=== PATIENT | male | born 2000 | race Caucasian/White ===

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

== ENCOUNTER 2019-03-31 15:49 | Emergency (ER) | payer OTHER, MEDICAID, SELFPAY ==
[2019-03-31 15:54] VITALS: BP 121/74; PULSE 70; RESP 20; TEMP 36.8; O2SAT 97; BMI 29.5
--- NOTE | 2019-03-31 15:55 | ED.EXTPRO ---
HPI - Extremity Problem <Breonna Gandara PA-C - Last Filed: 03/31/19 20:00> General Chief complaint: Extremity Problem,Nontraumatic Stated complaint: pain right shoulder Time Seen by Provider: 03/31/19 15:54 Source: patient Mode of arrival: ambulatory Limitations: no limitations History of Present Illness HPI Narrative: This 19-year-old male complains of worsening chronic right shoulder pain. He states that he has had this for several months, he thinks due to awkward positioning in his office chair as the left arm rest is broken and there is a nail protruding, so he tends to sit with the right arm and shoulder flexed up. He states he did not have any fall or any specific injury, and usually pain would get better just with gentle rotation and stretching of the shoulder and changing position. Recently however, this has started to get worse with persistent ache, and the last couple of days he has had minimal relief with stretching or changing positions. He states that last night it was hard to sleep and get comfortable due to the pain and that is why he came in today. Pain tends to get worse with lifting heavy objects as well as positioning described above. He denies any radiation of the pain. He denies any chest pain. He denies any weakness or numbness in the arm. He has tried some aspirin with minimal improvement and Excedrin with no relief. He denies any specific up work related injury or trigger Related Data Previous Rx's Medication Instructions Recorded albuterol sulfate HFA 90 1 inh INHALATION Q4-6H PRN #18 gram 11/28/18 mcg/actuation aerosol inhaler fluoxetine 20 mg capsule 20 mg PO DAILY #7 cap 12/08/18 lamotrigine 100 mg tablet 100 mg PO BID #60 tab 02/07/19 bupropion HCl 75 mg tablet 75 mg PO BID #60 tab 03/12/19 cyclobenzaprine 10 mg PO Q8H #10 tab 03/31/19 lidocaine 2 patch TOP DAILY #30 each 03/31/19 meloxicam 15 mg PO DAILY #10 tab 03/31/19 Allergies Allergy/AdvReac Type Severity Reaction Status Date / Time No Known Drug Allergies Allergy Verified 02/26/19 08:57 Review of Systems <Breonna Gandara PA-C - Last Filed: 03/31/19 20:00> Review of Systems ROS Unobtainable: All systems reviewed & are unremarkable except as noted in HPI and below PFSH <Breonna Gandara PA-C - Last Filed: 03/31/19 20:00> Medical History ADHD (Acute) Depression (Acute) Surgical History No pertinent past surgical history (Acute) Social History Smoking Status: Current some day smoker substance use type: marijuana Social History Smoking Status: Current some day smoker substance use type: marijuana Exam <Breonna Gandara PA-C - Last Filed: 03/31/19 20:00> Narrative Exam Narrative: GENERAL APPEARANCE: Patient sitting comfortably, in no distress. PULMONARY: Lungs clear to auscultation bilaterally CV: Regular rhythm regular without murmur, normal S1 and S2, no S3 or S4 MUSCULOSKELETAL: No tenderness over the posterior or lateral shoulder. Minimal tenderness over the right acromioclavicular area. Full active and passive range of motion of the shoulder without tenderness. Negative impingement tests, able to maintain resisted abduction without tenderness. 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/5 bilaterally NEUROLOGIC: Sensation grossly intact throughout the upper extremities VASCULAR: Hands are warm and pink bilaterally Initial Vital Signs Initial Vital Signs: Vital Signs Temperature 98.2 F 03/31/19 15:54 Pulse Rate 70 03/31/19 15:54 Respiratory Rate 20 03/31/19 15:54 Blood Pressure 121/74 03/31/19 15:54 Pulse Oximetry 97 03/31/19 15:54 <Sana Ordonez DO - Last Filed: 04/03/19 09:06> Initial Vital Signs Initial Vital Signs: Vital Signs Temperature 98.2 F 03/31/19 15:54 Pulse Rate 70 03/31/19 15:54 Respiratory Rate 20 03/31/19 15:54 Blood Pressure 121/74 03/31/19 15:54 Pulse Oximetry 97 03/31/19 15:54 Course <Breonna Gandara PA-C - Last Filed: 03/31/19 20:00> Vital Signs - 8 hr 03/31/19 15:54 Temperature 98.2 F Pulse Rate 70 Respiratory Rate 20 Blood Pressure 121/74 Pulse Oximetry 97 <Sana Ordonez DO - Last Filed: 04/03/19 09:06> Vital Signs - 8 hr 03/31/19 15:54 Temperature 98.2 F Pulse Rate 70 Respiratory Rate 20 Blood Pressure 121/74 Pulse Oximetry 97 Discharge Plan Departure Patient Disposition: Home Clinical Impression: Strain of shoulder, right Qualifiers: Encounter type: initial encounter Qualified Code(s): S46.911A - Strain of unspecified muscle, fascia and tendon at shoulder and upper arm level, right arm, initial encounter Discharge Date/Time: 03/31/19 16:33 Interventions: ED Discharge Assessment Last Done: 03/31/19 16:33 Instructions: DI for Shoulder Sprain Activity Restrictions/Additional Instructions: I think you do have muscle and tendon chronic strain in your shoulder even though you did not have any specific injury. I agree with you that this is likely due to awkward positioning as well as lifting and repetitive motion. You can try ice and heat. I have also prescribed some pain patches for you to try as well as a once daily anti-inflammatory pain medicine and muscle relaxant. Please start the muscle relaxant at nighttime since you have had difficulty getting comfortable and sleeping due to your shoulder. Remember that this can make you sleepy and not to drive or work while taking it. Please follow-up with your PCP early next week to assess your progress and determine whether further treatment or referral, i.e. for physical therapy, may be helpful. Please avoid awkward positioning, repetitive motion and heavy lifting whether at home or work. I have sent your prescriptions to [facility]. Prescriptions: New cyclobenzaprine 10 mg tablet 10 mg PO Q8H Qty: 10 RF: 0 meloxicam 15 mg tablet 15 mg PO DAILY Qty: 10 RF: 0 lidocaine 5 % adhesive patch,medicated 2 patch TOP DAILY Qty: 30 RF: 0 No Action albuterol sulfate 90 mcg/actuation HFA aerosol inhaler 1 inh INHALATION Q4-6H PRN (Reason: shortness of breath) Qty: 18 RF: 0 lamotrigine 100 mg tablet 100 mg PO BID Qty: 60 RF: 1 bupropion HCl 75 mg tablet 75 mg PO BID Qty: 60 RF: 0 fluoxetine 20 mg capsule 20 mg PO DAILY Qty: 7 RF: 0 Referrals: Verena Keys DO [Primary Care Provider] - <Sana Ordonez DO - Last Filed: 04/03/19 09:06> Cosign ED Attending Lucretiaature Attestation: I was immediately available in the department for consultation. This documentation has been reviewed and I agree with assessment and plan. Supervised by Sana Ordonez DO
--- NOTE | 2019-03-31 16:03 | PC.NURSE ---
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 He states he feels the pain started from this.
== END 2019-03-31 16:33 | disposition home or self-care (01) ==
PROVIDERS: Emergency Provider Internal Medicine; Family Provider Family Medicine; PCP Family Medicine
DX: S46.911A Strain of unspecified muscle, fascia and tendon at shoulder and upper arm level, right arm, initial encounter (principal); X50.1XXA Overexertion from prolonged static or awkward postures, initial encounter
CPT/HCPCS: 99282; 99283

== ENCOUNTER 2021-04-17 15:00 | Outpatient (RCR) | payer OTHER, MEDICAID, SELFPAY ==
--- NOTE | 2020-11-10 16:36 | PT.OIE ---
Current Diagnoses Pain in right shoulder (11/10/20) Pain in right wrist (11/10/20) Pain in left wrist (11/10/20) Stiffness of unspecified wrist, not elsewhere classified (11/10/20) Past Medical History (Last Updated 09/23/20 @ 13:58 by Betsy Sosa PA-C) ADHD Depression Right wrist pain Past Surgical History (Last Reviewed 07/29/20 @ 14:04 by Belinda Diaz) No pertinent past surgical history Visit Care Team Role Provider Type Verena Keys DO Primary Care Provider Physician Specialty: Family Practice Address: [address] [place] [address], [address], [address] Email: [email or web address] Betsy Sosa PA-C Attending Provider [employer] Family Provider Referring Provider Specialty: Internal Medicine Address: [address] [place] [address], [facility], [place], [address] Email: [email or web address] Physical Therapy Initial Evaluation PT-OP-A Visit Information Start: 11/06/20 19:17 Freq: Status: Active Protocol: Document 11/10/20 08:22 LRN (Rec: 11/10/20 09:14 LRN [id number]) Out-Patient Physical Therapy Visit Information Visit Information Visit Type Initial Evaluation Visit Start Time 08:22 Visit Stop Time 09:14 Total Visit Minutes 52 Visit Number 1 Evaluation Information Evaluation Date 11/10/20 PT-OP-B Current Condition Start: 11/06/20 19:17 Freq: Status: Active Protocol: Document 11/10/20 08:22 LRN (Rec: 11/10/20 09:14 LRN [id number]) Current Condition History of Current Condition Onset Date 9 months ago. 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 Stopped using medications when he quit working at [employer]. Working [employer] 03/2018-present with return of symptoms 9 months ago, more severe in the past 3 months. Noticed most with online dalia. Having increased cramping and strain in the ulnar side of the L wrist. R hand stiffness with pain on closing hand. Was given 2 hand braces that decreased symptoms, but now having worsening of symptoms again. R hand strain is in anterior/volar wrist (volar> medial). R shoulder hurting due to dalia. He rests his forearm on the table that is high and he has to lift his arm to move his mouse. 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 R shoulder pain is constant. Pt is R handed. Planning on going back to school in January for digital animation. Pt noted popping his index fingers that is accompanied by pain rated 1/10 . Prior Treatments and Tests Given hand braces at walk-in- clinic. Treatment Goals Patient/Caregiver Goals Pt goal is get ex for R shoulder, and decrease wrist pain with discharge to [facility]. 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 Current Functional Impairments (Reported) Functional Limitations- ADL's Limited in dalia and typing. Functional Limitations- Work/School Works in the presence of pain. Functional Limitations- Recreation/ Limited in amount of dalia he Hobbies is able to do. Personal Factors Other Personal Factors That May Effect Moving out of house tomorrow. Therapy/Recovery Currently renting at home. 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 Hx of neck pain, head aches/ hearing problems, dizziness from anemia (transferring from crouch to standing), depression controlled by medication, borderline personality disorder on mood stabilizers. PT-OP-C Subjective Start: 11/06/20 19:17 Freq: Status: Active Protocol: Document 11/10/20 08:22 LRN (Rec: 11/10/20 09:14 LRN [id number]) Patient Questionnaires Quick Dash- Upper Extremity Quick Dash UE Score 13.63 Quick Dash UE Impairment 1 to 19% Impaired (Score 1-19) OP-PT Pain Assessment Pain Assessment Grid Paper Pain Assessment Grid Completed Yes Location R shoulder Pain Location Details R upper shoulder Intensity 5 Scale Used Numeric (0 - 10) Description Aching Frequency Constant Pain Aggravating Factors Activity R wrist anterior/medial Pain Location Details R wrist on anterior and medial side. Intensity 4 Scale Used Numeric (0 - 10) Description Tightness Frequency Intermittent Pain Duration With use of hand Pain Aggravating Factors Activity Other Pain Aggravating Factors When trying to close th hand Other Pain Alleviating Factors Hand brace while at work. L wrist Pain Location Details L ulnar side of wrist Intensity 4 Scale Used Numeric (0 - 10) Description Cramping,Tightness Frequency Intermittent Pain Aggravating Factors Position Other Pain Aggravating Factors Bending wrist PT-OP-H Neuro Start: 11/06/20 19:17 Freq: Status: Active Protocol: Document 11/10/20 08:22 LRN (Rec: 11/10/20 09:14 LRN [id number]) Sensation Evaluation Gross Sensation Gross Sensation WNL PT-OP-J Posture/Palpation/Skin Start: 11/06/20 19:17 Freq: Status: Active Protocol: Document 11/10/20 08:22 LRN (Rec: 11/10/20 09:14 LRN [id number]) Posture Evaluation Position Sitting Head/C-Spine Posture Rotated Right Shoulder Posture (L) Forward,(R) Forward,(L) Elevated Standing Head/C-Spine Posture Side Bent Right T-Spine Posture Flattened L-Spine Posture Neutral Palpation Assessment Location R shoulder Palpation Location Supraspinatus Palpation Findings Tenderness Palpation Details Not tender at attachment sites . R wrist Palpation Location Radial side of wrist Palpation Findings Tenderness Palpation Details Tender at AB Pollicus Longus and Extensor Pollicus Brevis tendon. L wrist Palpation Location Radial side of wrist Palpation Findings Tenderness Palpation Details Tender at AB Pollicus Longus and Extensor Pollicus Brevis tendon. PT-OP-K Range of Motion Start: 11/06/20 19:17 Freq: Status: Active Protocol: Document 11/10/20 08:22 LRN (Rec: 11/10/20 09:14 LRN [id number]) Wrist Goniometric Range of Motion Wrist Right Wrist ROM WFL No Flexion Active (degrees) 60 Extension Active (degrees) 50 Ulnar Deviation Active (degrees) 30 Radial Deviation Active (degrees) 20 Left Wrist ROM WFL No Flexion Active (degrees) 70 Extension Active (degrees) 70 Ulnar Deviation Active (degrees) 32 Radial Deviation Active (degrees) 34 ROM Limitations Wrist Limitations of Range of Motion Pain Comments L wrist UD caused discomfort in radial side. PT-OP-L Special Tests Start: 11/06/20 19:17 Freq: Status: Active Protocol: Document 11/10/20 08:22 LRN (Rec: 11/10/20 09:14 LRN [id number]) Special Tests Wrist/Hand Special Tests Jo's Test Results + left PT-OP-M Strength Start: 11/06/20 19:17 Freq: Status: Active Protocol: Document 11/10/20 08:22 LRN (Rec: 11/10/20 09:14 LRN [id number]) Wrist Strength Wrist Manual Muscle Testing Right Comments Generally 5/5 with pain on testing UD, pain is radial side. Left Comments Generally 5/5 with pain on testing Ext (pain at wrist), Flex (pain at thumb ext tendon (one more lateral), RD pain is radial side, UD pain is radial side. Finger/Thumb Strength Finger Manual Muscle Testing Left Thumb Adduction 4+ Good+ Abduction (fingers T1) 4+ Good+ Comments Pain in medial thumb ext tendon. All else 5/5 no significant. PT-OP-Q Treatments Start: 11/06/20 19:17 Freq: Status: Active Protocol: Document 11/10/20 08:22 LRN (Rec: 11/10/20 09:14 LRN [id number]) Self-Care/Home Management Treatment Education Patient Education Pain Management,Posture Other Education Discussed results of evaluation, goals, and plan of care, pt agreeable. Discussed and educated pt in use of ice at home for pain management. Discussed and educated pt in proper posturing with emphasis on head/neck shoulder positioning. Recommended pt continue wearing wrist splints as he has been to help relieve pain. PT-OP-T Assessment and Plan Start: 11/06/20 19:17 Freq: Status: Active Protocol: Document 11/10/20 08:22 LRN (Rec: 11/10/20 09:14 LRN [id number]) Physical Therapy Assessment Rehab Potential Rehabilitation Potential Fair Evaluation Complexity Number of Personal Factors/Comorbidities 3 or More Number of Body Systems Impaired 4 or More Clinical Presentation at Evaluation Evolving Impairments Impairments Activity Tolerance,Pain,ROM, Soft Tissue Mobility Goals Four Impairment R shoulder pain Short Term Goal (STG) Pt will be educated in a self care HEP of shoulder exercises to manage his pain. STG Duration 12/12/20 Custodial Goal (LTG) Decrease R shoulder pain to intermittent in nature and pain no greater than 2/10. LTG Duration 01/09/21 Three Impairment L radial sided wrist pain Short Term Goal (STG) Pt will be educated in proper wrist care to minimize pain and improve pain free mobility . STG Duration 11/28/20 Dining Car Hop Goal (LTG) Decrease R wrist pain to 0/10 with intermittent flare ups with prolonged use. LTG Duration 01/09/21 Two Impairment R wrist pain with use (pain rated 4/10). Short Term Goal (STG) Pt will be educated in a self care wrist flexibility HEP. STG Duration 12/05/20 Dining Car Hop Goal (LTG) Decrease R wrist pain to 0/10 with intermittent flare ups with prolonged use. LTG Duration 01/09/21 One Impairment Lacks self care HEP Custodial Goal (LTG) Pt will be independent with a self care exercise program of wrist, thumb/finger stretches. LTG Duration 01/09/21 Assessment Summary Assessment Pt is a 20 yo male who presents with a +DeQuervain's syndrome of the L wrist and beginning symptoms on the R wrist. He also demonstrates soft tissue dysfunction of the R shoulder and postural changes most noticeable when at rest; therefore he may have a cervical component for his R sided pain (shoulder/wrist) that will be assessed for at his next visit. 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 The pt reportedly spends quite a bit of time playing online games and using his computer for writing (typing), requiring prolonged use of his thumbs/wrist/hand, hindering his progress, but the pt is very receptive to modifying his activities for his rehabilitation. Physical Therapy Plan Frequency and Duration Frequency of Treatment 1x/Week Plan of Care Start Date 11/10/20 Plan of Care End Date 01/09/21 Therapeutic Interventions Therapeutic Interventions Home Exercise Program,Joint Mobilizations,Manual Therapy, Patient/Caregiver Education, Self-Care/Home Management,Soft Tissue Mobilization,Taping, Therapeutic Exercises Modalities Cold Pack/Ice Massage,Hot Packs,Iontophoresis,Ultrasound Other Therapeutic Interventions Iontophoresis with 3mg/mL Dexamethasone with sodium phosphate. Next Visit Focus/Plan Next Note Type Treatment Note Next Visit Plan Assess for cervical involvement of R shoulder/ wrist pain; Start pt on HEP: R wrist stretches and neck stretches if appropriate. Iontophoresis of L thumb Abductors and start HEP: of gentle L wrist/thumb stretches . Educate & Issue home program for modality use for pain management (ice/contrast baths). Discuss reduction of pt use of computer to wrist thumb/wrist. Discuss ergonomics of positioning to use his computer. Educate pt in self STM of thumb AB's and wrist muscles involved with tightness. Possible use of K- tape
--- NOTE | 2020-11-10 16:36 | PT.OPPOC ---
Physical, Occupational & Speech Therapy At [facility] Current Diagnoses Pain in right shoulder (11/10/20) Pain in right wrist (11/10/20) Pain in left wrist (11/10/20) Stiffness of unspecified wrist, not elsewhere classified (11/10/20) Visit Care Team Role Provider Type Verena Keys DO Primary Care Provider Physician Specialty: Family Practice Address: [address] [place] [address], [address], [place], [address] Email: [email or web address] Betsy Sosa PA-C Attending Provider [employer] Family Provider Referring Provider Specialty: Internal Medicine Address: [address] [place] [address], [address], [place], [address] Email: [email or web address] Plan Of Care PT-OP-T Assessment and Plan Start: 11/06/20 19:17 Freq: Status: Active Protocol: Document 11/10/20 08:22 LRN (Rec: 11/10/20 09:14 LRN [id number]) Physical Therapy Assessment Rehab Potential Rehabilitation Potential Fair Evaluation Complexity Number of Personal Factors/Comorbidities 3 or More Number of Body Systems Impaired 4 or More Clinical Presentation at Evaluation Evolving Impairments Impairments Activity Tolerance,Pain,ROM, Soft Tissue Mobility Goals Four Impairment R shoulder pain Short Term Goal (STG) Pt will be educated in a self care HEP of shoulder exercises to manage his pain. STG Duration 12/12/20 Die Out Worker Goal (LTG) Decrease R shoulder pain to intermittent in nature and pain no greater than 2/10. LTG Duration 01/09/21 Three Impairment L radial sided wrist pain Short Term Goal (STG) Pt will be educated in proper wrist care to minimize pain and improve pain free mobility . STG Duration 11/28/20 Mcc Goal (LTG) Decrease R wrist pain to 0/10 with intermittent flare ups with prolonged use. LTG Duration 01/09/21 Two Impairment R wrist pain with use (pain rated 4/10). Short Term Goal (STG) Pt will be educated in a self care wrist flexibility HEP. STG Duration 12/05/20 Die Out Worker Goal (LTG) Decrease R wrist pain to 0/10 with intermittent flare ups with prolonged use. LTG Duration 01/09/21 One Impairment Lacks self care HEP Mcc Goal (LTG) Pt will be independent with a self care exercise program of wrist, thumb/finger stretches. LTG Duration 01/09/21 Assessment Summary Assessment Pt is a 20 yo male who presents with a +DeQuervain's syndrome of the L wrist and beginning symptoms on the R wrist. He also demonstrates soft tissue dysfunction of the R shoulder and postural changes most noticeable when at rest; therefore he may have a cervical component for his R sided pain (shoulder/wrist) that will be assessed for at his next visit. 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 The pt reportedly spends quite a bit of time playing online games and using his computer for writing (typing), requiring prolonged use of his thumbs/wrist/hand, hindering his progress, but the pt is very receptive to modifying his activities for his rehabilitation. Physical Therapy Plan Frequency and Duration Frequency of Treatment 1x/Week Plan of Care Start Date 11/10/20 Plan of Care End Date 01/09/21 Therapeutic Interventions Therapeutic Interventions Home Exercise Program,Joint Mobilizations,Manual Therapy, Patient/Caregiver Education, Self-Care/Home Management,Soft Tissue Mobilization,Taping, Therapeutic Exercises Modalities Cold Pack/Ice Massage,Hot Packs,Iontophoresis,Ultrasound Other Therapeutic Interventions Iontophoresis with 3mg/mL Dexamethasone with sodium phosphate. Next Visit Focus/Plan Next Note Type Treatment Note Next Visit Plan Assess for cervical involvement of R shoulder/ wrist pain; Start pt on HEP: R wrist stretches and neck stretches if appropriate. Iontophoresis of L thumb Abductors and start HEP: of gentle L wrist/thumb stretches . Educate & Issue home program for modality use for pain management (ice/contrast baths). Discuss reduction of pt use of computer to wrist thumb/wrist. Discuss ergonomics of positioning to use his computer. Educate pt in self STM of thumb AB's and wrist muscles involved with tightness. Possible use of K- tape Plan of Care Dates Plan of Care Start Date 11/10/20 Plan of Care End Date 01/09/21 Electronically Signed by: Jacqueline Gonzalez, PT 11/11/20 0655 Please Sign and Return: I have reviewed this Plan of Care and certify that the skilled therapy services above are required to meet the patient?s needs. Physician Signature Date Printed Name and Credentials Clinical Instructor Signature Printed Name and Credentials
--- NOTE | 2020-11-20 12:33 | PT.OTN ---
Current Diagnoses Pain in right shoulder (11/20/20) Pain in right wrist (11/20/20) Pain in left wrist (11/20/20) Stiffness of unspecified wrist, not elsewhere classified (11/20/20) Physical Therapy Treatment Note PT-OP-A Visit Information Start: 11/06/20 19:17 Freq: Status: Active Protocol: Document 11/20/20 11:21 LRN (Rec: 11/20/20 12:32 LRN [id number]) Out-Patient Physical Therapy Visit Information Visit Information Visit Type Treatment Note Visit Start Time 11: Visit Stop Time 12:12 Total Visit Minutes 51 Visit Number 2 Evaluation Information Evaluation Date 11/10/20 PT-OP-B Current Condition Start: 11/06/20 19:17 Freq: Status: Active Protocol: Document 11/10/20 08:22 LRN (Rec: 11/10/20 09:14 LRN [id number]) Current Condition History of Current Condition Onset Date 9 months ago. 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 Stopped using medications when he quit working at [employer]. Working [employer] 03/2018-present with return of symptoms 9 months ago, more severe in the past 3 months. Noticed most with online dalia. Having increased cramping and strain in the ulnar side of the L wrist. R hand stiffness with pain on closing hand. Was given 2 hand braces that decreased symptoms, but now having worsening of symptoms again. R hand strain is in anterior/volar wrist (volar> medial). R shoulder hurting due to dalia. He rests his forearm on the table that is high and he has to lift his arm to move his mouse. 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 R shoulder pain is constant. Pt is R handed. Planning on going back to school in January for digital animation. Pt noted popping his index fingers that is accompanied by pain rated 1/10 . Prior Treatments and Tests Given hand braces at walk-in- clinic. Treatment Goals Patient/Caregiver Goals Pt goal is get ex for R shoulder, and decrease wrist pain with discharge to [facility]. 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 Current Functional Impairments (Reported) Functional Limitations- ADL's Limited in dalia and typing. Functional Limitations- Work/School Works in the presence of pain. Functional Limitations- Recreation/ Limited in amount of dalia he Hobbies is able to do. Personal Factors Other Personal Factors That May Effect Moving out of house tomorrow. Therapy/Recovery Currently renting at home. 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 Hx of neck pain, head aches/ hearing problems, dizziness from anemia (transferring from crouch to standing), depression controlled by medication, borderline personality disorder on mood stabilizers. PT-OP-C Subjective Start: 11/06/20 19:17 Freq: Status: Active Protocol: Document 11/20/20 11:21 LRN (Rec: 11/20/20 12:32 LRN [id number]) OP-PT Subjective Patient Comments Patient Comments Started Adderal and didn't sleep; therefore is slow. Wearing wrist brace and hasn't been working at [employer] but has worked some at [employer] using more the L hand to spray (can't wear braces at work). Pain only with stress. R wrist is consistently more than R. Repositioned mouse and keyboard and hoping to get some relief of R shoulder pain with adjustment. Has been biking without using hands mostly. PT-OP-H Neuro Start: 11/06/20 19:17 Freq: Status: Active Protocol: Document 11/10/20 08:22 LRN (Rec: 11/10/20 09:14 LRN [id number]) Sensation Evaluation Gross Sensation Gross Sensation WNL PT-OP-J Posture/Palpation/Skin Start: 11/06/20 19:17 Freq: Status: Active Protocol: Document 11/10/20 08:22 LRN (Rec: 11/10/20 09:14 LRN [id number]) Posture Evaluation Position Sitting Head/C-Spine Posture Rotated Right Shoulder Posture (L) Forward,(R) Forward,(L) Elevated Standing Head/C-Spine Posture Side Bent Right T-Spine Posture Flattened L-Spine Posture Neutral Palpation Assessment Location R shoulder Palpation Location Supraspinatus Palpation Findings Tenderness Palpation Details Not tender at attachment sites . R wrist Palpation Location Radial side of wrist Palpation Findings Tenderness Palpation Details Tender at AB Pollicus Longus and Extensor Pollicus Brevis tendon. L wrist Palpation Location Radial side of wrist Palpation Findings Tenderness Palpation Details Tender at AB Pollicus Longus and Extensor Pollicus Brevis tendon. PT-OP-K Range of Motion Start: 11/06/20 19:17 Freq: Status: Active Protocol: Document 11/10/20 08:22 LRN (Rec: 11/10/20 09:14 LRN [id number]) Wrist Goniometric Range of Motion Wrist Right Wrist ROM WFL No Flexion Active (degrees) 60 Extension Active (degrees) 50 Ulnar Deviation Active (degrees) 30 Radial Deviation Active (degrees) 20 Left Wrist ROM WFL No Flexion Active (degrees) 70 Extension Active (degrees) 70 Ulnar Deviation Active (degrees) 32 Radial Deviation Active (degrees) 34 ROM Limitations Wrist Limitations of Range of Motion Pain Comments L wrist UD caused discomfort in radial side. PT-OP-L Special Tests Start: 11/06/20 19:17 Freq: Status: Active Protocol: Document 11/10/20 08:22 LRN (Rec: 11/10/20 09:14 LRN [id number]) Special Tests Wrist/Hand Special Tests Jo's Test Results + left PT-OP-M Strength Start: 11/06/20 19:17 Freq: Status: Active Protocol: Document 11/10/20 08:22 LRN (Rec: 11/10/20 09:14 LRN [id number]) Wrist Strength Wrist Manual Muscle Testing Right Comments Generally 5/5 with pain on testing UD, pain is radial side. Left Comments Generally 5/5 with pain on testing Ext (pain at wrist), Flex (pain at thumb ext tendon (one more lateral), RD pain is radial side, UD pain is radial side. Finger/Thumb Strength Finger Manual Muscle Testing Left Thumb Adduction 4+ Good+ Abduction (fingers T1) 4+ Good+ Comments Pain in medial thumb ext tendon. All else 5/5 no significant. PT-OP-Q Treatments Start: 11/06/20 19:17 Freq: Status: Active Protocol: Document 11/20/20 11:21 LRN (Rec: 11/20/20 12:32 LRN [id number]) Therapeutic Exercises Sitting Exercises Thumb AB stretch Sitting Exercise Name Jo test position Side bilateral Reps/Minutes 7' Comments Exercise done in supine & sitting. Extra time time to determine max rosa Wrist flexors stretch Sitting Exercise Name Wrist flexors stretch Side bilateral Reps/Minutes Hold x 10 secs, 5' Comments Extra time to determinine max tolerance position for stretch Manual Therapy Treatment Soft Tissue Mobilization R UT Body Location R UT Mobilization Type Strumming,Sustained Pressure Intensity/Depth Moderate Body Position Supine Manual Traction Cervical Details Manual C tx with belt Body Position Supine Reps/Duration 5' Comments No change with R shoulder pain in R UT with traction Self-Care/Home Management Treatment Education Patient Education Home Exercise Program,Posture Other Education Educated and discussed posture of pt in sitting at computer , handout issued and reviewed . Pt did not have questions regarding sitting position, but briefly discussed his chair and locking positions. Activities Self-Care/Home Management Activities Issued & reviewed HEP: * Stretch to radial side of wrist (Finelstein position), * Stretch to wrist flexors. PT-OP-R Modalities Start: 11/06/20 19:17 Freq: Status: Active Protocol: Document 11/20/20 11:21 LRN (Rec: 11/20/20 12:32 LRN [id number]) Ultrasound Therapy Treatment R UT Treatment Duration (minutes) 8 Patient Position Supine Coupling Medium Ultrasound Gel Applicator Size (cm2) 10 Mode Setting Continuous Duty Cycle 100% Intensity Setting (w/cm2) 1.5 PT-OP-T Assessment and Plan Start: 11/06/20 19:17 Freq: Status: Active Protocol: Document 11/20/20 11:21 LRN (Rec: 11/20/20 12:32 LRN [id number]) Physical Therapy Assessment Goals Four Impairment R shoulder pain Short Term Goal (STG) Pt will be educated in a self care HEP of shoulder exercises to manage his pain. STG Duration 12/12/20 Underwriting Director Goal (LTG) Decrease R shoulder pain to intermittent in nature and pain no greater than 2/10. LTG Duration 01/09/21 Three Impairment L radial sided wrist pain Short Term Goal (STG) Pt will be educated in proper wrist care to minimize pain and improve pain free mobility . STG Duration 11/28/20 [facility] Goal (LTG) Decrease R wrist pain to 0/10 with intermittent flare ups with prolonged use. LTG Duration 01/09/21 Two Impairment R wrist pain with use (pain rated 4/10). Short Term Goal (STG) Pt will be educated in a self care wrist flexibility HEP. STG Duration 12/05/20 Underwriting Director Goal (LTG) Decrease R wrist pain to 0/10 with intermittent flare ups with prolonged use. LTG Duration 01/09/21 One Impairment Lacks self care HEP Underwriting Director Goal (LTG) Pt will be independent with a self care exercise program of wrist, thumb/finger stretches. HEP TO DATE: *Stretch to radial side of wrist ( Finelstein position), *Stretch to wrist flexors. LTG Duration 01/09/21 (11/20/20: Progressing) Assessment Summary Assessment Pt had no change in R shoulder pain with manual cervical tx; therefore probably not neuro related. Pt not having wrist pain to start, primary complaint was R UT pain. Pt appeared to have a good understanding of HEP with handouts. Pt Alderil medication may make his recall of ex's difficult; therefore will need to review next visit . Pt actively bicycling for transportation may hinder his rehab progress. Physical Therapy Plan Frequency and Duration Frequency of Treatment 1x/Week Plan of Care Start Date 11/10/20 Plan of Care End Date 01/09/21 Next Visit Focus/Plan Next Note Type Treatment Note Next Visit Plan Assess response to ergonomic changes of desk at home. Review issued HEP. Start pt on HEP: R wrist stretches and add R UT stretch. Try Iontophoresis of L thumb Abductors and progress HEP: of gentle L wrist/thumb stretches. Educate & Issue home program for modality use for pain management (ice/ contrast baths). Discuss reduction of pt use of computer to wrist thumb/wrist. Educate pt in self STM of thumb AB's and wrist muscles involved with tightness. Possible use of K-tape
--- NOTE | 2020-11-27 11:42 | PT-OP ANOTE ---
Per phone conversation, pt informed of DNS, but pt reported he has appt scheduled for tomorrow. Pt scheduled tomorrow at 9a opening.
--- NOTE | 2020-11-28 16:53 | PT.OTN ---
Current Diagnoses Pain in right shoulder (11/28/20) Pain in right wrist (11/28/20) Pain in left wrist (11/28/20) Stiffness of unspecified wrist, not elsewhere classified (11/28/20) Physical Therapy Treatment Note PT-OP-A Visit Information Start: 11/06/20 19:17 Freq: Status: Active Protocol: Document 11/28/20 09:03 LRN (Rec: 11/28/20 09:57 LRN [id number]) Out-Patient Physical Therapy Visit Information Visit Information Visit Type Treatment Note Visit Start Time 09:03 Visit Stop Time 09:53 Total Visit Minutes 50 Visit Number 3 Evaluation Information Evaluation Date 11/10/20 PT-OP-B Current Condition Start: 11/06/20 19:17 Freq: Status: Active Protocol: Document 11/10/20 08:22 LRN (Rec: 11/10/20 09:14 LRN [id number]) Current Condition History of Current Condition Onset Date 9 months ago. 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 Stopped using medications when he quit working at [employer]. Working [employer] 03/2018-present with return of symptoms 9 months ago, more severe in the past 3 months. Noticed most with online dalia. Having increased cramping and strain in the ulnar side of the L wrist. R hand stiffness with pain on closing hand. Was given 2 hand braces that decreased symptoms, but now having worsening of symptoms again. R hand strain is in anterior/volar wrist (volar> medial). R shoulder hurting due to dalia. He rests his forearm on the table that is high and he has to lift his arm to move his mouse. 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 R shoulder pain is constant. Pt is R handed. Planning on going back to school in January for digital animation. Pt noted popping his index fingers that is accompanied by pain rated 1/10 . Prior Treatments and Tests Given hand braces at walk-in- clinic. Treatment Goals Patient/Caregiver Goals Pt goal is get ex for R shoulder, and decrease wrist pain with discharge to [facility]. 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 Current Functional Impairments (Reported) Functional Limitations- ADL's Limited in dalia and typing. Functional Limitations- Work/School Works in the presence of pain. Functional Limitations- Recreation/ Limited in amount of dalia he Hobbies is able to do. Personal Factors Other Personal Factors That May Effect Moving out of house tomorrow. Therapy/Recovery Currently renting at home. 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 Hx of neck pain, head aches/ hearing problems, dizziness from anemia (transferring from crouch to standing), depression controlled by medication, borderline personality disorder on mood stabilizers. PT-OP-C Subjective Start: 11/06/20 19:17 Freq: Status: Active Protocol: Document 11/28/20 09:03 LRN (Rec: 11/28/20 09:57 LRN [id number]) OP-PT Subjective Patient Comments Patient Comments R shoulder wasn't bad at work yesterday and at night. Change of job has helped not doing [employer] heavy lifting stuff. [employer] work is not bothering shoulder, but wrist isn't too bad due to wearing brace with saran wrap. Writing at home, he tried to adjust his angles at the computer at home. Lying on back for 5-10' helps decrease neck/R shoulder pain. States he did not get enough sleep so he is seeing shadow people. OP-PT Pain Assessment Location R shoulder Pain Location Details R upper shoulder Intensity 5 Scale Used Numeric (0 - 10) Description Aching Frequency Intermittent Pain Aggravating Factors Activity R wrist anterior/medial Pain Location Details R wrist on anterior and medial side. Intensity 4 Scale Used Numeric (0 - 10) Description Tightness Frequency Intermittent Pain Duration With use of hand Pain Aggravating Factors Activity Other Pain Aggravating Factors When trying to close the hand Other Pain Alleviating Factors Hand brace while at work. Comments Pain Comments No pain in R shoulder and wrist. PT-OP-H Neuro Start: 11/06/20 19:17 Freq: Status: Active Protocol: Document 11/10/20 08:22 LRN (Rec: 11/10/20 09:14 LRN [id number]) Sensation Evaluation Gross Sensation Gross Sensation WNL PT-OP-J Posture/Palpation/Skin Start: 11/06/20 19:17 Freq: Status: Active Protocol: Document 11/10/20 08:22 LRN (Rec: 11/10/20 09:14 LRN [id number]) Posture Evaluation Position Sitting Head/C-Spine Posture Rotated Right Shoulder Posture (L) Forward,(R) Forward,(L) Elevated Standing Head/C-Spine Posture Side Bent Right T-Spine Posture Flattened L-Spine Posture Neutral Palpation Assessment Location R shoulder Palpation Location Supraspinatus Palpation Findings Tenderness Palpation Details Not tender at attachment sites . R wrist Palpation Location Radial side of wrist Palpation Findings Tenderness Palpation Details Tender at AB Pollicus Longus and Extensor Pollicus Brevis tendon. L wrist Palpation Location Radial side of wrist Palpation Findings Tenderness Palpation Details Tender at AB Pollicus Longus and Extensor Pollicus Brevis tendon. PT-OP-K Range of Motion Start: 11/06/20 19:17 Freq: Status: Active Protocol: Document 11/10/20 08:22 LRN (Rec: 11/10/20 09:14 LRN [id number]) Wrist Goniometric Range of Motion Wrist Right Wrist ROM WFL No Flexion Active (degrees) 60 Extension Active (degrees) 50 Ulnar Deviation Active (degrees) 30 Radial Deviation Active (degrees) 20 Left Wrist ROM WFL No Flexion Active (degrees) 70 Extension Active (degrees) 70 Ulnar Deviation Active (degrees) 32 Radial Deviation Active (degrees) 34 ROM Limitations Wrist Limitations of Range of Motion Pain Comments L wrist UD caused discomfort in radial side. PT-OP-L Special Tests Start: 11/06/20 19:17 Freq: Status: Active Protocol: Document 11/10/20 08:22 LRN (Rec: 11/10/20 09:14 LRN [id number]) Special Tests Wrist/Hand Special Tests Jo's Test Results + left PT-OP-M Strength Start: 11/06/20 19:17 Freq: Status: Active Protocol: Document 11/10/20 08:22 LRN (Rec: 11/10/20 09:14 LRN [id number]) Wrist Strength Wrist Manual Muscle Testing Right Comments Generally 5/5 with pain on testing UD, pain is radial side. Left Comments Generally 5/5 with pain on testing Ext (pain at wrist), Flex (pain at thumb ext tendon (one more lateral), RD pain is radial side, UD pain is radial side. Finger/Thumb Strength Finger Manual Muscle Testing Left Thumb Adduction 4+ Good+ Abduction (fingers T1) 4+ Good+ Comments Pain in medial thumb ext tendon. All else 5/5 no significant. PT-OP-Q Treatments Start: 11/06/20 19:17 Freq: Status: Active Protocol: Document 11/28/20 09:03 LRN (Rec: 11/28/20 09:57 LRN [id number]) Therapeutic Exercises Sitting Exercises R UT Stretch Sitting Exercise Name R UT stretch Side bilateral Reps/Minutes 10 x 6 Shoulder rolls Sitting Exercise Name Forward/Backward Side bilateral Reps/Minutes 15x each Scapular pinches Sitting Exercise Name Scapular pinches Side bilateral Reps/Minutes 10x 2 Thumb AB stretch Sitting Exercise Name Jo test position, R>L Side bilateral Reps/Minutes 7' Comments Exercise done in supine & sitting. Extra time time to determine max rosa Wrist flexors stretch Sitting Exercise Name Wrist flexors stretch, R>L Side bilateral Reps/Minutes Hold x 10 secs, 5' Comments Extra time to determinine max tolerance position for stretch Self-Care/Home Management Treatment Education Patient Education Home Exercise Program Other Education Reviewed Previous HEP of wrist stretches with 2nd set issued : wrist stretches. Activities Self-Care/Home Management Activities Developed list of HEP ex's for pt to track completion of exercises. Issued & reviewed HEP: STRETCHES: *Sidebend (UT), * Rot. STRENGTHENING: * Scapular pinches, *Shoulder rolls. POSTURE: *Postural repositioning against wall. PT-OP-R Modalities Start: 11/06/20 19:17 Freq: Status: Active Protocol: Document 11/28/20 09:03 LRN (Rec: 11/28/20 09:57 LRN [id number]) Ultrasound Therapy Treatment R thumb AB Treatment Duration (minutes) 8 Patient Position Sitting Applicator Size (cm2) 2 Mode Setting Pulsed Duty Cycle 50% Intensity Setting (w/cm2) 1.0 PT-OP-T Assessment and Plan Start: 11/06/20 19:17 Freq: Status: Active Protocol: Document 11/28/20 09:03 LRN (Rec: 11/28/20 09:57 LRN [id number]) Physical Therapy Assessment Goals Four Impairment R shoulder pain Short Term Goal (STG) Pt will be educated in a self care HEP of shoulder exercises to manage his pain. STG Duration 12/12/20 Account Contact Associate Goal (LTG) Decrease R shoulder pain to intermittent in nature and pain no greater than 2/10. LTG Duration 01/09/21 Three Impairment L radial sided wrist pain Short Term Goal (STG) Pt will be educated in proper wrist care to minimize pain and improve pain free mobility . STG Duration 11/28/20 Account Contact Associate Goal (LTG) Decrease R wrist pain to 0/10 with intermittent flare ups with prolonged use. LTG Duration 01/09/21 Two Impairment R wrist pain with use (pain rated 4/10). Short Term Goal (STG) Pt will be educated in a self care wrist flexibility HEP. STG Duration 12/05/20 Shelter Goal (LTG) Decrease R wrist pain to 0/10 with intermittent flare ups with prolonged use. LTG Duration 01/09/21 One Impairment Lacks self care HEP Shelter Goal (LTG) Pt will be independent with a self care exercise program of wrist, thumb/finger stretches. HEP TO DATE: STRETCHES: * Sidebend (UT), *Rot, *Stretch to radial side of wrist ( Finelstein position), *Stretch to wrist flexors. STRENGTHENING: *Scapular pinches, *Shoulder rolls. POSTURE: *Postural repositioning against wall. LTG Duration 01/09/21 (: Progressing) Assessment Summary Assessment Assess response to US. Pt still working on adjusting his computer station due to recent move, but appears to have a good understanding of what he can do to improve his posture. Pt able to follow directions, but needs handouts due to questionable recall. Pt was issued 2nd set of his HEP with list of ex's for him to track progress. Physical Therapy Plan Frequency and Duration Frequency of Treatment 1x/Week Plan of Care Start Date 11/10/20 Plan of Care End Date 01/09/21 Next Visit Focus/Plan Next Note Type Treatment Note Next Visit Plan 5 more visits approved, discuss POC. Assess response to ergonomic changes of desk at home if pt able to complete set up. Review issued HEP ( shoulder rolls, neck stretch). Progress R shoulder/neck stabilization. Try Iontophoresis of L thumb Abductors if needed for pain management. Progress HEP as appropriate. Educate & Issue home program for modality use for pain management (ice/ contrast baths). Educate pt in self STM of thumb AB's and wrist muscles involved with tightness. Possible use of K- tape. Start strengthening of opposition/pinching/intrinsic strengthening.
--- NOTE | 2020-12-02 16:38 | PT.OTN ---
Current Diagnoses Pain in right shoulder (12/02/20) Pain in right wrist (12/02/20) Pain in left wrist (12/02/20) Stiffness of unspecified wrist, not elsewhere classified (12/02/20) Physical Therapy Treatment Note PT-OP-A Visit Information Start: 11/06/20 19:17 Freq: Status: Active Protocol: Document 12/02/20 09:48 LRN (Rec: 12/02/20 10:35 LRN [id number]) Out-Patient Physical Therapy Visit Information Visit Information Visit Type Treatment Note Visit Start Time 09:48 Visit Stop Time 10:33 Total Visit Minutes 45 Visit Number 4 Evaluation Information Evaluation Date 11/10/20 PT-OP-B Current Condition Start: 11/06/20 19:17 Freq: Status: Active Protocol: Document 11/10/20 08:22 LRN (Rec: 11/10/20 09:14 LRN [id number]) Current Condition History of Current Condition Onset Date 9 months ago. 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 Stopped using medications when he quit working at [employer]. Working [employer] 03/2018-present with return of symptoms 9 months ago, more severe in the past 3 months. Noticed most with online dalia. Having increased cramping and strain in the ulnar side of the L wrist. R hand stiffness with pain on closing hand. Was given 2 hand braces that decreased symptoms, but now having worsening of symptoms again. R hand strain is in anterior/volar wrist (volar> medial). R shoulder hurting due to dalia. He rests his forearm on the table that is high and he has to lift his arm to move his mouse. 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 R shoulder pain is constant. Pt is R handed. Planning on going back to school in January for digital animation. Pt noted popping his index fingers that is accompanied by pain rated 1/10 . Prior Treatments and Tests Given hand braces at walk-in- clinic. Treatment Goals Patient/Caregiver Goals Pt goal is get ex for R shoulder, and decrease wrist pain with discharge to [facility]. 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 Current Functional Impairments (Reported) Functional Limitations- ADL's Limited in dalia and typing. Functional Limitations- Work/School Works in the presence of pain. Functional Limitations- Recreation/ Limited in amount of dalia he Hobbies is able to do. Personal Factors Other Personal Factors That May Effect Moving out of house tomorrow. Therapy/Recovery Currently renting at home. 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 Hx of neck pain, head aches/ hearing problems, dizziness from anemia (transferring from crouch to standing), depression controlled by medication, borderline personality disorder on mood stabilizers. PT-OP-C Subjective Start: 11/06/20 19:17 Freq: Status: Active Protocol: Document 12/02/20 09:48 LRN (Rec: 12/02/20 10:35 LRN [id number]) OP-PT Subjective Patient Comments Patient Comments R Shoulder hasn't been hurting and isn't noticing it as much , pain 1/10 but at worst is 4- 5/10; tolerable. L wrist is doing fine, no pain . R wrist is not chronic but was starting to hurt last night. In morning not having as much tightness and hand is a little easier to close. PT-OP-H Neuro Start: 11/06/20 19:17 Freq: Status: Active Protocol: Document 11/10/20 08:22 LRN (Rec: 11/10/20 09:14 LRN [id number]) Sensation Evaluation Gross Sensation Gross Sensation WNL PT-OP-J Posture/Palpation/Skin Start: 11/06/20 19:17 Freq: Status: Active Protocol: Document 11/10/20 08:22 LRN (Rec: 11/10/20 09:14 LRN [id number]) Posture Evaluation Position Sitting Head/C-Spine Posture Rotated Right Shoulder Posture (L) Forward,(R) Forward,(L) Elevated Standing Head/C-Spine Posture Side Bent Right T-Spine Posture Flattened L-Spine Posture Neutral Palpation Assessment Location R shoulder Palpation Location Supraspinatus Palpation Findings Tenderness Palpation Details Not tender at attachment sites . R wrist Palpation Location Radial side of wrist Palpation Findings Tenderness Palpation Details Tender at AB Pollicus Longus and Extensor Pollicus Brevis tendon. L wrist Palpation Location Radial side of wrist Palpation Findings Tenderness Palpation Details Tender at AB Pollicus Longus and Extensor Pollicus Brevis tendon. PT-OP-K Range of Motion Start: 11/06/20 19:17 Freq: Status: Active Protocol: Document 12/02/20 09:48 LRN (Rec: 12/02/20 10:35 LRN [id number]) Wrist Goniometric Range of Motion Wrist Right Ulnar Deviation Active (degrees) 22 Radial Deviation Active (degrees) 16 Left Ulnar Deviation Active (degrees) 22 Radial Deviation Active (degrees) 24 PT-OP-L Special Tests Start: 11/06/20 19:17 Freq: Status: Active Protocol: Document 11/10/20 08:22 LRN (Rec: 11/10/20 09:14 LRN [id number]) Special Tests Wrist/Hand Special Tests Jo's Test Results + left PT-OP-M Strength Start: 11/06/20 19:17 Freq: Status: Active Protocol: Document 11/10/20 08:22 LRN (Rec: 11/10/20 09:14 LRN [id number]) Wrist Strength Wrist Manual Muscle Testing Right Comments Generally 5/5 with pain on testing UD, pain is radial side. Left Comments Generally 5/5 with pain on testing Ext (pain at wrist), Flex (pain at thumb ext tendon (one more lateral), RD pain is radial side, UD pain is radial side. Finger/Thumb Strength Finger Manual Muscle Testing Left Thumb Adduction 4+ Good+ Abduction (fingers T1) 4+ Good+ Comments Pain in medial thumb ext tendon. All else 5/5 no significant. PT-OP-Q Treatments Start: 11/06/20 19:17 Freq: Status: Active Protocol: Document 12/02/20 09:48 LRN (Rec: 12/02/20 10:35 LRN [id number]) Therapeutic Exercises Sitting Exercises Neck Ext Sitting Exercise Name Active Neck ext Reps/Minutes 10x 3 R UT Stretch Sitting Exercise Name R UT stretch Side bilateral Reps/Minutes 10 x 6 Shoulder rolls Sitting Exercise Name Forward/Backward Side bilateral Reps/Minutes 15x each Scapular pinches Sitting Exercise Name Scapular pinches Side bilateral Reps/Minutes 15x 10 holds Thumb AB stretch Sitting Exercise Name Jo test position, R>L Side bilateral Reps/Minutes 7' Comments Exercise done in supine & sitting. Extra time time to determine max rosa Standing Exercises Shoulder Ext Standing Exercise Name Shoulder Ext strengthening Side bilateral Resistance Lev 2 TB around wrist Reps/Minutes 15x 2 Shoulder ER/IR strengthening Standing Exercise Name Shoulder ER/IR strengthening Side bilateral Resistance Lev 2 TB around wrist Reps/Minutes 15x 3 Self-Care/Home Management Treatment Education Patient Education Home Exercise Program Other Education Educated/Instructed pt in HEP: Wrist UD/RD with arms by sides. Activities Self-Care/Home Management Activities Issued & reviewed HEP: Shoulder strengthening ex's ( TBand around wrist, not pt grasping) and neck ext strengthening. Issued White strap for doorway exercising. PT-OP-R Modalities Start: 11/06/20 19:17 Freq: Status: Active Protocol: Document 11/28/20 09:03 LRN (Rec: 11/28/20 09:57 LRN [id number]) Ultrasound Therapy Treatment R thumb AB Treatment Duration (minutes) 8 Patient Position Sitting Applicator Size (cm2) 2 Mode Setting Pulsed Duty Cycle 50% Intensity Setting (w/cm2) 1.0 PT-OP-T Assessment and Plan Start: 11/06/20 19:17 Freq: Status: Active Protocol: Document 12/02/20 09:48 LRN (Rec: 12/02/20 10:35 LRN [id number]) Physical Therapy Assessment Goals Four Impairment R shoulder pain Short Term Goal (STG) Pt will be educated in a self care HEP of shoulder exercises to manage his pain. STG Duration 12/12/20 (12/02/20: MET GOAL) Longterm Goal (LTG) Decrease R shoulder pain to intermittent in nature and pain no greater than 2/10. LTG Duration 01/09/21 (12/02/20: MET GOAL) Three Impairment L radial sided wrist pain Short Term Goal (STG) Pt will be educated in proper wrist care to minimize pain and improve pain free mobility . STG Duration 11/28/20 (12/02/20: MET GOAL, no pain complaints) Longterm Goal (LTG) Decrease R wrist pain to 0/10 with intermittent flare ups with prolonged use. LTG Duration 01/09/21 Two Impairment R wrist pain with use (pain rated 4/10). Short Term Goal (STG) Pt will be educated in a self care wrist flexibility HEP. STG Duration 12/05/20 (12/02/20: MET GOAL) Employee Training Specialist Goal (LTG) Decrease R wrist pain to 0/10 with intermittent flare ups with prolonged use. LTG Duration 01/09/21 (12/02/20: Progressing) One Impairment Lacks self care HEP Employee Training Specialist Goal (LTG) Pt will be independent with a self care exercise program of wrist, thumb/finger stretches. HEP TO DATE: STRETCHES: * Sidebend (UT), *Rot, *Stretch to radial side of wrist ( Finelstein position), *Stretch to wrist flexors. STRENGTHENING: *Scapular pinches, *Shoulder rolls. POSTURE: *Postural repositioning against wall. LTG Duration 01/09/21 (: Progressing) Progress Towards Goals Progress Comments Goal #4 MET. Progressed HEP. STG #3 MET. STG #2 MET. Assessment Summary Assessment Pt reports being in process of ergonomically setting up his computer work station. Pt improved with tolerable shoulder pain rated 1/10. No L wrist complaints. Wrist AROM UD/RD mobility improved. He conts to have chronic R wrist pain but he is reporting less stiffness in the mornings. His reduction in work activity has helped to reduce his wrist pain. Iontophoresis may help to eliminate his wrist pain if he can continue to have a reduced work schedule. Physical Therapy Plan Frequency and Duration Frequency of Treatment 1x/Week Plan of Care Start Date 11/10/20 Plan of Care End Date 01/09/21 Next Visit Focus/Plan Next Note Type Treatment Note Next Visit Plan 4 more visits approved, discuss POC. End w/ iontophoresis. Assess response to ergonomic changes of desk at home if pt able to complete set up. Review issued HEP (shoulder rolls, neck stretch). Review R shoulder/neck stabilization. Try Iontophoresis of L thumb Abductors if needed for pain management. Progress HEP as appropriate. Educate & Issue home program for modality use for pain management (ice/ contrast baths). Educate pt in self STM of thumb AB's and wrist muscles involved with tightness. Possible use of K- tape. Start strengthening of opposition/pinching/intrinsic strengthening.
--- NOTE | 2020-12-22 12:38 | PT.OTN ---
Current Diagnoses Pain in right shoulder (12/22/20) Pain in right wrist (12/22/20) Pain in left wrist (12/22/20) Stiffness of unspecified wrist, not elsewhere classified (12/22/20) Physical Therapy Treatment Note PT-OP-A Visit Information Start: 11/06/20 19:17 Freq: Status: Active Protocol: Document 12/22/20 11:19 LRN (Rec: 12/22/20 12:27 LRN [id number]) Out-Patient Physical Therapy Visit Information Visit Information Visit Type Treatment Note Visit Start Time 11:19 Visit Stop Time 12:06 Total Visit Minutes 47 Visit Number 5 Evaluation Information Evaluation Date 11/10/20 PT-OP-B Current Condition Start: 11/06/20 19:17 Freq: Status: Active Protocol: Document 11/10/20 08:22 LRN (Rec: 11/10/20 09:14 LRN [id number]) Current Condition History of Current Condition Onset Date 9 months ago. 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 Stopped using medications when he quit working at [employer]. Working [employer] 03/2018-present with return of symptoms 9 months ago, more severe in the past 3 months. Noticed most with online dalia. Having increased cramping and strain in the ulnar side of the L wrist. R hand stiffness with pain on closing hand. Was given 2 hand braces that decreased symptoms, but now having worsening of symptoms again. R hand strain is in anterior/volar wrist (volar> medial). R shoulder hurting due to dalia. He rests his forearm on the table that is high and he has to lift his arm to move his mouse. 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 R shoulder pain is constant. Pt is R handed. Planning on going back to school in January for digital animation. Pt noted popping his index fingers that is accompanied by pain rated 1/10 . Prior Treatments and Tests Given hand braces at walk-in- clinic. Treatment Goals Patient/Caregiver Goals Pt goal is get ex for R shoulder, and decrease wrist pain with discharge to [facility]. 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 Current Functional Impairments (Reported) Functional Limitations- ADL's Limited in dalia and typing. Functional Limitations- Work/School Works in the presence of pain. Functional Limitations- Recreation/ Limited in amount of dalia he Hobbies is able to do. Personal Factors Other Personal Factors That May Effect Moving out of house tomorrow. Therapy/Recovery Currently renting at home. 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 Hx of neck pain, head aches/ hearing problems, dizziness from anemia (transferring from crouch to standing), depression controlled by medication, borderline personality disorder on mood stabilizers. PT-OP-C Subjective Start: 11/06/20 19:17 Freq: Status: Active Protocol: Document 12/22/20 11:19 LRN (Rec: 12/22/20 12:27 LRN [id number]) OP-PT Subjective Patient Comments Patient Comments States his R shoulder has been doing better, pain is 2/10. Wrists have been a lot better . Switching jobs have helped and has been shying away from dalia and adjusting the way he sits in his chair. L shoulder hurts because he slept on it wrong. Daily work doesn't hurt wrist. Wears spint with biking. PT-OP-H Neuro Start: 11/06/20 19:17 Freq: Status: Active Protocol: Document 11/10/20 08:22 LRN (Rec: 11/10/20 09:14 LRN [id number]) Sensation Evaluation Gross Sensation Gross Sensation WNL PT-OP-J Posture/Palpation/Skin Start: 11/06/20 19:17 Freq: Status: Active Protocol: Document 11/10/20 08:22 LRN (Rec: 11/10/20 09:14 LRN [id number]) Posture Evaluation Position Sitting Head/C-Spine Posture Rotated Right Shoulder Posture (L) Forward,(R) Forward,(L) Elevated Standing Head/C-Spine Posture Side Bent Right T-Spine Posture Flattened L-Spine Posture Neutral Palpation Assessment Location R shoulder Palpation Location Supraspinatus Palpation Findings Tenderness Palpation Details Not tender at attachment sites . R wrist Palpation Location Radial side of wrist Palpation Findings Tenderness Palpation Details Tender at AB Pollicus Longus and Extensor Pollicus Brevis tendon. L wrist Palpation Location Radial side of wrist Palpation Findings Tenderness Palpation Details Tender at AB Pollicus Longus and Extensor Pollicus Brevis tendon. PT-OP-K Range of Motion Start: 11/06/20 19:17 Freq: Status: Active Protocol: Document 12/02/20 09:48 LRN (Rec: 12/02/20 10:35 LRN [id number]) Wrist Goniometric Range of Motion Wrist Right Ulnar Deviation Active (degrees) 22 Radial Deviation Active (degrees) 16 Left Ulnar Deviation Active (degrees) 22 Radial Deviation Active (degrees) 24 PT-OP-L Special Tests Start: 11/06/20 19:17 Freq: Status: Active Protocol: Document 11/10/20 08:22 LRN (Rec: 11/10/20 09:14 LRN [id number]) Special Tests Wrist/Hand Special Tests Jo's Test Results + left PT-OP-M Strength Start: 11/06/20 19:17 Freq: Status: Active Protocol: Document 11/10/20 08:22 LRN (Rec: 11/10/20 09:14 LRN [id number]) Wrist Strength Wrist Manual Muscle Testing Right Comments Generally 5/5 with pain on testing UD, pain is radial side. Left Comments Generally 5/5 with pain on testing Ext (pain at wrist), Flex (pain at thumb ext tendon (one more lateral), RD pain is radial side, UD pain is radial side. Finger/Thumb Strength Finger Manual Muscle Testing Left Thumb Adduction 4+ Good+ Abduction (fingers T1) 4+ Good+ Comments Pain in medial thumb ext tendon. All else 5/5 no significant. PT-OP-Q Treatments Start: 11/06/20 19:17 Freq: Status: Active Protocol: Document 12/22/20 11:19 LRN (Rec: 12/22/20 12:27 LRN [id number]) Therapeutic Exercises Sitting Exercises Wrist Ext Sitting Exercise Name Wrist Ext Side bilateral Equipment Used Lev 1 TB Reps/Minutes 8' Comments Extra time to determine proper positioning and execution of ex Wrist flex Sitting Exercise Name Wrist flex strengthening Side bilateral Equipment Used Lev 1 TB Reps/Minutes 8' Comments Extra time to determine proper positioning and execution of ex Supination stretch Sitting Exercise Name Supination stretch Side bilateral Reps/Minutes 8' Comments Extra time to determine tolerable positioning/ awareness and execution of ex R UT Stretch Sitting Exercise Name R UT stretch, MH to neck prior to stretching Side bilateral Reps/Minutes 4' Wrist flexors stretch Sitting Exercise Name Wrist flexors stretch, R>L Side bilateral Reps/Minutes 8' Comments Extra time to determinine max tolerance position for stretch Self-Care/Home Management Treatment Education Patient Education Home Exercise Program Other Education Determined and reviewed x 2 wrist strenthening ex's, to include biceps curl for isometric wrist strengthening. Activities Self-Care/Home Management Activities Issued 2nd Lev 1 TBand for wrist strengthening. I/S pt in ex for home: Strengthening Wrist ext/flex, active stretch UD/RD and problem solved ways for pt to incorporate ex's in his daily routine (example: in shower for active ROM and TB at dalia chair to remind him to exercise). PT-OP-R Modalities Start: 11/06/20 19:17 Freq: Status: Active Protocol: Document 11/28/20 09:03 LRN (Rec: 11/28/20 09:57 LRN [id number]) Ultrasound Therapy Treatment R thumb AB Treatment Duration (minutes) 8 Patient Position Sitting Applicator Size (cm2) 2 Mode Setting Pulsed Duty Cycle 50% Intensity Setting (w/cm2) 1.0 PT-OP-T Assessment and Plan Start: 11/06/20 19:17 Freq: Status: Active Protocol: Document 12/22/20 11:19 LRN (Rec: 12/22/20 12:27 LRN [id number]) Physical Therapy Assessment Goals Three Impairment L radial sided wrist pain Short Term Goal (STG) Pt will be educated in proper wrist care to minimize pain and improve pain free mobility . (12/22/20: L wrist is 0/10 pain ) STG Duration 11/28/20 (12/02/20: MET GOAL, no pain complaints) Correction Goal (LTG) Decrease L wrist pain to 0/10 with intermittent flare ups with prolonged use. (12/22/20: Improved, pt hasn't wakened in morning with a stiff and unable to close hand , pain today 0/10) LTG Duration 01/09/21 (12/22/20: MET GOAL) Two Impairment R wrist pain with use (pain rated 4/10). Short Term Goal (STG) Pt will be educated in a self care wrist flexibility HEP. STG Duration 12/05/20 (12/02/20: MET GOAL) Correction Goal (LTG) Decrease R wrist pain to 0/10 with intermittent flare ups with prolonged use. LTG Duration 01/09/21 (12/02/20: Progressing) One Impairment Lacks self care HEP Correction Goal (LTG) Pt will be independent with a self care exercise program of wrist, thumb/finger stretches. HEP TO DATE: STRETCHES: * Sidebend (UT), *Rot, *Stretch to radial side of wrist ( Finelstein position), *Stretch to wrist flexors. STRENGTHENING: *Scapular pinches, *Shoulder rolls. POSTURE: *Postural repositioning against wall. LTG Duration 01/09/21 (: Progressing) Progress Towards Goals Progress Comments Goal #3 MET. Pt reports today no L wrist pain. Occasional wrist pain, primarily on the R side. Assessment Summary Assessment Pt has set up his work station but will be moving at the end of the month; therefore will be changing again his work situation. Pt R shoulder pain is rated 2/10 and L shoulder is painful from sleeping on it wrong. His wrist pain in intermittent and he is mainly wearing the wrist supports when bicycling. Pt shows limitations in wrist mobility R>L. No pain complaints from strengthening other than from mobility restriction. Physical Therapy Plan Frequency and Duration Frequency of Treatment 1x/Week Plan of Care Start Date 11/10/20 Plan of Care End Date 01/09/21 Next Visit Focus/Plan Next Note Type Treatment Note Next Visit Plan 4 (3 units each) more visits approved. Pt may schedule 2 more visits if needed. Review instructed HEP (wrist strengthening with Lev 1 TB: flex/ext & active UD/RD in shower). Review R shoulder/ neck stabilization. Progress HEP as appropriate. Educate & Issue home program for modality use for pain management (ice/contrast baths ). Educate pt in self STM of thumb AB's and wrist muscles involved with tightness. Possible use of K- tape. Start strengthening of opposition/pinching/intrinsic strengthening. End w/ iontophoresis (L thumb Abductors if needed for pain management).
--- NOTE | 2020-12-29 11:38 | PT-OP ANOTE ---
Pt DNS. Message left of pt's next appt day and time. Pt advised of DNS policy.
--- NOTE | 2021-01-01 16:01 | PT.OTN ---
Current Diagnoses Pain in right shoulder (01/01/21) Pain in right wrist (01/01/21) Pain in left wrist (01/01/21) Stiffness of unspecified wrist, not elsewhere classified (01/01/21) Physical Therapy Treatment Note PT-OP-A Visit Information Start: 11/06/20 19:17 Freq: Status: Active Protocol: Document 01/01/21 14:23 LRN (Rec: 01/01/21 15:24 LRN [id number]) Out-Patient Physical Therapy Visit Information Visit Information Visit Type Treatment Note Visit Start Time 14:23 Visit Stop Time 15:13 Total Visit Minutes 50 Visit Number 6 Evaluation Information Evaluation Date 11/10/20 PT-OP-B Current Condition Start: 11/06/20 19:17 Freq: Status: Active Protocol: Document 11/10/20 08:22 LRN (Rec: 11/10/20 09:14 LRN [id number]) Current Condition History of Current Condition Onset Date 9 months ago. 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 Stopped using medications when he quit working at [employer]. Working [employer] 03/2018-present with return of symptoms 9 months ago, more severe in the past 3 months. Noticed most with online dalia. Having increased cramping and strain in the ulnar side of the L wrist. R hand stiffness with pain on closing hand. Was given 2 hand braces that decreased symptoms, but now having worsening of symptoms again. R hand strain is in anterior/volar wrist (volar> medial). R shoulder hurting due to dalia. He rests his forearm on the table that is high and he has to lift his arm to move his mouse. 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 R shoulder pain is constant. Pt is R handed. Planning on going back to school in January for digital animation. Pt noted popping his index fingers that is accompanied by pain rated 1/10 . Prior Treatments and Tests Given hand braces at walk-in- clinic. Treatment Goals Patient/Caregiver Goals Pt goal is get ex for R shoulder, and decrease wrist pain with discharge to [facility]. 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 Current Functional Impairments (Reported) Functional Limitations- ADL's Limited in dalia and typing. Functional Limitations- Work/School Works in the presence of pain. Functional Limitations- Recreation/ Limited in amount of dalia he Hobbies is able to do. Personal Factors Other Personal Factors That May Effect Moving out of house tomorrow. Therapy/Recovery Currently renting at home. 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 Hx of neck pain, head aches/ hearing problems, dizziness from anemia (transferring from crouch to standing), depression controlled by medication, borderline personality disorder on mood stabilizers. PT-OP-C Subjective Start: 11/06/20 19:17 Freq: Status: Active Protocol: Document 01/01/21 14:23 LRN (Rec: 01/01/21 15:24 LRN [id number]) OP-PT Subjective Patient Comments Patient Comments R shoulder pain has been a problem but states he used he mother's massager/roller for 1 .5 hrs and he felt a lot better. L wrist only time is pain after too much scrubbing pans. R wrist still has problems because he is moving heavy things at work with his dominant side. Wakes with stiff hands. PT-OP-H Neuro Start: 11/06/20 19:17 Freq: Status: Active Protocol: Document 11/10/20 08:22 LRN (Rec: 11/10/20 09:14 LRN [id number]) Sensation Evaluation Gross Sensation Gross Sensation WNL PT-OP-J Posture/Palpation/Skin Start: 11/06/20 19:17 Freq: Status: Active Protocol: Document 11/10/20 08:22 LRN (Rec: 11/10/20 09:14 LRN [id number]) Posture Evaluation Position Sitting Head/C-Spine Posture Rotated Right Shoulder Posture (L) Forward,(R) Forward,(L) Elevated Standing Head/C-Spine Posture Side Bent Right T-Spine Posture Flattened L-Spine Posture Neutral Palpation Assessment Location R shoulder Palpation Location Supraspinatus Palpation Findings Tenderness Palpation Details Not tender at attachment sites . R wrist Palpation Location Radial side of wrist Palpation Findings Tenderness Palpation Details Tender at AB Pollicus Longus and Extensor Pollicus Brevis tendon. L wrist Palpation Location Radial side of wrist Palpation Findings Tenderness Palpation Details Tender at AB Pollicus Longus and Extensor Pollicus Brevis tendon. PT-OP-K Range of Motion Start: 11/06/20 19:17 Freq: Status: Active Protocol: Document 12/02/20 09:48 LRN (Rec: 12/02/20 10:35 LRN [id number]) Wrist Goniometric Range of Motion Wrist Right Ulnar Deviation Active (degrees) 22 Radial Deviation Active (degrees) 16 Left Ulnar Deviation Active (degrees) 22 Radial Deviation Active (degrees) 24 PT-OP-L Special Tests Start: 11/06/20 19:17 Freq: Status: Active Protocol: Document 11/10/20 08:22 LRN (Rec: 11/10/20 09:14 LRN [id number]) Special Tests Wrist/Hand Special Tests Jo's Test Results + left PT-OP-M Strength Start: 11/06/20 19:17 Freq: Status: Active Protocol: Document 11/10/20 08:22 LRN (Rec: 11/10/20 09:14 LRN [id number]) Wrist Strength Wrist Manual Muscle Testing Right Comments Generally 5/5 with pain on testing UD, pain is radial side. Left Comments Generally 5/5 with pain on testing Ext (pain at wrist), Flex (pain at thumb ext tendon (one more lateral), RD pain is radial side, UD pain is radial side. Finger/Thumb Strength Finger Manual Muscle Testing Left Thumb Adduction 4+ Good+ Abduction (fingers T1) 4+ Good+ Comments Pain in medial thumb ext tendon. All else 5/5 no significant. PT-OP-Q Treatments Start: 11/06/20 19:17 Freq: Status: Active Protocol: Document 01/01/21 14:23 LRN (Rec: 01/01/21 15:24 LRN [id number]) Therapeutic Exercises Sitting Exercises UD/RD strengthening Sitting Exercise Name UD/RD strengthening Side right Reps/Minutes 10x each Wrist ext strengthening Sitting Exercise Name Wrist ext strengthening Side right Wrist flex strengthening Sitting Exercise Name Wrist flex strengthening Side right Reps/Minutes 10x Radial Dev stretch Sitting Exercise Name Radial Dev stretch Side right Reps/Minutes 4' Comments On Paraffin Dip Supination stretch Sitting Exercise Name Supination stretch Side bilateral Reps/Minutes 8' Comments On Paraffin Dip Thumb AB stretch Sitting Exercise Name Jo test position, R>L Side bilateral Reps/Minutes 7' Comments Exercise done in sitting. Wrist flexors stretch Sitting Exercise Name Wrist flexors stretch, R>L Side bilateral Reps/Minutes 8' Comments Extra time to determinine max tolerance position for stretch PT-OP-R Modalities Start: 11/06/20 19:17 Freq: Status: Active Protocol: Document 01/01/21 14:23 LRN (Rec: 01/01/21 15:24 LRN [id number]) Paraffin Bath Treatment Right Hand Treatment Technique Dip-immersion Number Wax Layers (layers) 8 Duration (minutes) 10 Patient Tolerance Good PT-OP-T Assessment and Plan Start: 11/06/20 19:17 Freq: Status: Active Protocol: Document 01/01/21 14:23 LRN (Rec: 01/01/21 15:24 LRN [id number]) Physical Therapy Assessment Goals Three Impairment L radial sided wrist pain Short Term Goal (STG) Pt will be educated in proper wrist care to minimize pain and improve pain free mobility . (12/22/20: L wrist is 0/10 pain ) STG Duration 11/28/20 (12/02/20: MET GOAL, no pain complaints) Income Tax Administrator Goal (LTG) Decrease L wrist pain to 0/10 with intermittent flare ups with prolonged use. (12/22/20: Improved, pt hasn't wakened in morning with a stiff and unable to close hand , pain today 0/10) LTG Duration 01/09/21 (12/22/20: MET GOAL) Two Impairment R wrist pain with use (pain rated 4/10). Short Term Goal (STG) Pt will be educated in a self care wrist flexibility HEP. STG Duration 12/05/20 (12/02/20: MET GOAL) Income Tax Administrator Goal (LTG) Decrease R wrist pain to 0/10 with intermittent flare ups with prolonged use. (01/01/21: Mostly pain is 0/10 , increases with use at work; therefore requiring use of soft wrist brace) LTG Duration 01/09/21 (12/02/20: Progressing) One Impairment Lacks self care HEP Income Tax Administrator Goal (LTG) Pt will be independent with a self care exercise program of wrist, thumb/finger stretches. HEP TO DATE: STRETCHES: * Sidebend (UT), *Rot, *Stretch to radial side of wrist ( Finelstein position), *Stretch to wrist flexors. STRENGTHENING: *Scapular pinches, *Shoulder rolls, * Wrist strengthening: flex, ext , UD, RD w/TB, *finger tendon glides. POSTURE: *Postural repositioning against wall. LTG Duration 01/09/21 (01/01/21: Progressing) Progress Towards Goals Progress Comments Progressed self care HEP. STG #2: Progressed with R wrist pain primarily while at work. Stiffness persists in AM. Assessment Summary Assessment Stiffness in R wrist first in AM is primary complaint, and pain after use at work. Tight with Jovani wrist supination (~ 75 deg's L, 70 deg's R) & R wrist ext (~70 deg's) and UD. L wrist pain with wrist flex strengthening after ~5 reps. No complaints with other wrist strengthening ex's. Pt is moving to a new place of residence; therefore may experience a flare up of L wrist/thumb (IP joint) pain. Physical Therapy Plan Frequency and Duration Frequency of Treatment 1x/Week Plan of Care Start Date 11/10/20 Plan of Care End Date 01/09/21 Next Visit Focus/Plan Next Note Type Progress Note Next Visit Plan New POC needed if pt needs to continue therapy. Discuss POC (1 eval per year). Three (3 units each) more visits approved. Pt may schedule 2 more visits if needed. Review HEP issued (wrist strengthening with Lev 1 TB: flex/ext & UD/RD & finger glides). Review R shoulder/ neck stabilization. Educate & Issue home program for modality use for pain management (ice/contrast baths ). Educate pt in self STM of thumb AB's and if tender, wrist muscles involved with tightness. Start strengthening of opposition/ pinching/intrinsic strengthening. End w/ iontophoresis (L thumb Abductors if needed for pain management).
--- NOTE | 2021-01-05 17:33 | PT.OTN ---
Current Diagnoses Pain in right shoulder (01/05/21) Pain in right wrist (01/05/21) Pain in left wrist (01/05/21) Stiffness of unspecified wrist, not elsewhere classified (01/05/21) Physical Therapy Treatment Note PT-OP-A Visit Information Start: 11/06/20 19:17 Freq: Status: Active Protocol: Document 01/05/21 13:34 LRN (Rec: 01/05/21 14:23 LRN [id number]) Out-Patient Physical Therapy Visit Information Visit Information Visit Type Progress Note Visit Start Time 13:34 Visit Stop Time 14:22 Total Visit Minutes 48 Visit Number 7 Evaluation Information Evaluation Date 11/10/20 PT-OP-B Current Condition Start: 11/06/20 19:17 Freq: Status: Active Protocol: Document 11/10/20 08:22 LRN (Rec: 11/10/20 09:14 LRN [id number]) Current Condition History of Current Condition Onset Date 9 months ago. 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 Stopped using medications when he quit working at [employer]. Working [employer] 03/2018-present with return of symptoms 9 months ago, more severe in the past 3 months. Noticed most with online dalia. Having increased cramping and strain in the ulnar side of the L wrist. R hand stiffness with pain on closing hand. Was given 2 hand braces that decreased symptoms, but now having worsening of symptoms again. R hand strain is in anterior/volar wrist (volar> medial). R shoulder hurting due to dalia. He rests his forearm on the table that is high and he has to lift his arm to move his mouse. 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 R shoulder pain is constant. Pt is R handed. Planning on going back to school in January for digital animation. Pt noted popping his index fingers that is accompanied by pain rated 1/10 . Prior Treatments and Tests Given hand braces at walk-in- clinic. Treatment Goals Patient/Caregiver Goals Pt goal is get ex for R shoulder, and decrease wrist pain with discharge to [facility]. 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 Current Functional Impairments (Reported) Functional Limitations- ADL's Limited in dalia and typing. Functional Limitations- Work/School Works in the presence of pain. Functional Limitations- Recreation/ Limited in amount of dalia he Hobbies is able to do. Personal Factors Other Personal Factors That May Effect Moving out of house tomorrow. Therapy/Recovery Currently renting at home. 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 Hx of neck pain, head aches/ hearing problems, dizziness from anemia (transferring from crouch to standing), depression controlled by medication, borderline personality disorder on mood stabilizers. PT-OP-C Subjective Start: 11/06/20 19:17 Freq: Status: Active Protocol: Document 01/05/21 13:34 LRN (Rec: 01/05/21 14:23 LRN [id number]) OP-PT Subjective Patient Comments Patient Comments Moved out of house and is into new apartment and has errands to do. R shoulder is very painful and the L wrist is hurting. Did all ex's in 1 hour and thinks maybe he stretched too much in L wrist. R shoulder pain is rated 5/ 10, L wrist is 4/10 ( intermittent), R wrist is 2/10 . Wakes with R wrist stiff. Note: Pt wearing both wrist splints today. Can't remember is the paraffin dip was helpful. Patient Questionnaires Quick Dash- Upper Extremity Quick Dash UE Score 15.9 Quick Dash UE Impairment 1 to 19% Impaired (Score 1-19) OP-PT Pain Assessment Location R shoulder Pain Location Details R upper shoulder Intensity 5 Scale Used Numeric (0 - 10) Description Aching Frequency Constant R wrist anterior/medial Pain Location Details R wrist on anterior and medial side. Intensity 2 Scale Used Numeric (0 - 10) Description Aching L wrist Pain Location Details L ulnar side of wrist Intensity 4 Scale Used Numeric (0 - 10) Description- Other Bending wrist Frequency Intermittent PT-OP-H Neuro Start: 11/06/20 19:17 Freq: Status: Active Protocol: Document 11/10/20 08:22 LRN (Rec: 11/10/20 09:14 LRN [id number]) Sensation Evaluation Gross Sensation Gross Sensation WNL PT-OP-J Posture/Palpation/Skin Start: 11/06/20 19:17 Freq: Status: Active Protocol: Document 11/10/20 08:22 LRN (Rec: 11/10/20 09:14 LRN [id number]) Posture Evaluation Position Sitting Head/C-Spine Posture Rotated Right Shoulder Posture (L) Forward,(R) Forward,(L) Elevated Standing Head/C-Spine Posture Side Bent Right T-Spine Posture Flattened L-Spine Posture Neutral Palpation Assessment Location R shoulder Palpation Location Supraspinatus Palpation Findings Tenderness Palpation Details Not tender at attachment sites . R wrist Palpation Location Radial side of wrist Palpation Findings Tenderness Palpation Details Tender at AB Pollicus Longus and Extensor Pollicus Brevis tendon. L wrist Palpation Location Radial side of wrist Palpation Findings Tenderness Palpation Details Tender at AB Pollicus Longus and Extensor Pollicus Brevis tendon. PT-OP-K Range of Motion Start: 11/06/20 19:17 Freq: Status: Active Protocol: Document 12/02/20 09:48 LRN (Rec: 12/02/20 10:35 LRN [id number]) Wrist Goniometric Range of Motion Wrist Right Ulnar Deviation Active (degrees) 22 Radial Deviation Active (degrees) 16 Left Ulnar Deviation Active (degrees) 22 Radial Deviation Active (degrees) 24 PT-OP-L Special Tests Start: 11/06/20 19:17 Freq: Status: Active Protocol: Document 11/10/20 08:22 LRN (Rec: 11/10/20 09:14 LRN [id number]) Special Tests Wrist/Hand Special Tests Jo's Test Results + left PT-OP-M Strength Start: 11/06/20 19:17 Freq: Status: Active Protocol: Document 11/10/20 08:22 LRN (Rec: 11/10/20 09:14 LRN [id number]) Wrist Strength Wrist Manual Muscle Testing Right Comments Generally 5/5 with pain on testing UD, pain is radial side. Left Comments Generally 5/5 with pain on testing Ext (pain at wrist), Flex (pain at thumb ext tendon (one more lateral), RD pain is radial side, UD pain is radial side. Finger/Thumb Strength Finger Manual Muscle Testing Left Thumb Adduction 4+ Good+ Abduction (fingers T1) 4+ Good+ Comments Pain in medial thumb ext tendon. All else 5/5 no significant. PT-OP-Q Treatments Start: 11/06/20 19:17 Freq: Status: Active Protocol: Document 01/05/21 13:34 LRN (Rec: 01/05/21 17:31 LRN [id number]) Therapeutic Exercises Sitting Exercises Wrist Ext Sitting Exercise Name Wrist extension stretch Side bilateral Supination stretch Sitting Exercise Name Supination stretch Side left Wrist flexors stretch Sitting Exercise Name Wrist flexor stretch Side bilateral PT-OP-R Modalities Start: 11/06/20 19:17 Freq: Status: Active Protocol: Document 01/05/21 13:34 LRN (Rec: 01/05/21 14:23 LRN [id number]) Hot Pack/Cold Pack Treatment Cold Pack Location Jovani wrist Patient Position Sitting Treatment Duration (minutes) 10 Comments Cold pack used during STM of R wrist extensors, & US of L wrist flexors. Ultrasound Therapy Treatment L UCL Treatment Duration (minutes) 4 Patient Position Sitting Coupling Medium Ultrasound Gel Applicator Size (cm2) 2 Frequency Setting (mHz) 3 Mode Setting Pulsed Duty Cycle 50% Intensity Setting (w/cm2) 1.0 R thumb AB Treatment Duration (minutes) 4 Patient Position Sitting Applicator Size (cm2) 2 Mode Setting Pulsed Duty Cycle 50% Intensity Setting (w/cm2) 1.0 R UT Treatment Duration (minutes) 5 Patient Position Sitting Coupling Medium Ultrasound Gel Applicator Size (cm2) 2 Mode Setting Pulsed Duty Cycle 50% Intensity Setting (w/cm2) 1.0 PT-OP-T Assessment and Plan Start: 11/06/20 19:17 Freq: Status: Active Protocol: Document 01/05/21 13:34 LRN (Rec: 01/05/21 14:23 LRN [id number]) Physical Therapy Assessment Rehab Potential Rehabilitation Potential Fair Evaluation Complexity Number of Personal Factors/Comorbidities 3 or More Number of Body Systems Impaired 4 or More Clinical Presentation at Evaluation Evolving Impairments Impairments Activity Tolerance,Pain,ROM, Soft Tissue Mobility Goals Four Impairment R shoulder pain Short Term Goal (STG) Pt will be educated in a self care HEP of shoulder exercises to manage his pain. STG Duration 12/12/20 (12/02/20: MET GOAL) Correction Goal (LTG) Decrease R shoulder pain to intermittent in nature and pain no greater than 2/10. LTG Duration 01/09/21 (01/05/21: MET GOAL on 12/02, pt currently in flare -up) Three Impairment L radial sided wrist pain Short Term Goal (STG) Pt will be educated in proper wrist care to minimize pain and improve pain free mobility . (12/22/20: L wrist is 0/10 pain ) (01/05/21: L wrist is 4/10 pain) STG Duration 11/28/20 (12/05/20: NOT MET GOAL, pt in flare-up) Elevator Inspector Goal (LTG) Decrease L wrist pain to 0/10 with intermittent flare ups with prolonged use. (12/22/20: Improved, pt hasn't wakened in morning with a stiff and unable to close hand , pain today 0/10) (01/05/21: Pain is 4/10) LTG Duration 01/09/21 (01/05/21: NOT MET GOAL, pt in flare-up) Two Impairment R wrist pain with use (pain rated 4/10). Short Term Goal (STG) Pt will be educated in a self care wrist flexibility HEP. STG Duration 12/05/20 (12/02/20: MET GOAL) Correction Goal (LTG) Decrease R wrist pain to 0/10 with intermittent flare ups with prolonged use. (01/01/21: Mostly pain is 0/10 , increases with use at work; therefore requiring use of soft wrist brace) LTG Duration 02/04/21 (12/02/20: Progressing) One Impairment Lacks self care HEP Correction Goal (LTG) Pt will be independent with a self care exercise program of wrist, thumb/finger stretches. HEP TO DATE: STRETCHES: * Sidebend (UT), *Rot, *Stretch to radial side of wrist ( Finelstein position), *Stretch to wrist flexors. STRENGTHENING: *Scapular pinches, *Shoulder rolls, * Wrist strengthening: flex, ext , UD, RD w/TB, *finger tendon glides. POSTURE: *Postural repositioning against wall. LTG Duration 02/04/21 (01/01/21: Progressing) Progress Towards Goals Progress Comments Pt is in flare-up and appears worse today. UE QuickDASH is 15.9 ( initially was 13.63). Pain complaints: R wrist improved at 2/10 (initially was 4/10), R shoulder and L wrist are same as initially (7 /10 & 4/10 respectively) but has been 0/10. Assessment Summary Assessment Pt is a 20 yo male who has been seen for 5 treatments since 11/10/20. He has shown good progress, but attends today with complaints of reoccurance of his R shoulder & L wrist pain due to moving from one residence to another. The pt is in a flare-up due to the move; therefore he appears worse in function and pain complaints. The pt will benefit from continued therapy for recovery from his move and placement on his independent self care HEP. The pt's insurance allows for one more visit; therefore the pt is choosing to be seen for one more visit, then discharged from therapy. Physical Therapy Plan Frequency and Duration Frequency of Treatment 1x/Week Plan of Care Start Date 01/05/21 Plan of Care End Date 02/19/21 Therapeutic Interventions Therapeutic Interventions Home Exercise Program,Joint Mobilizations,Manual Therapy, Patient/Caregiver Education, Self-Care/Home Management,Soft Tissue Mobilization,Taping, Therapeutic Exercises Modalities Cold Pack/Ice Massage,Hot Packs,Iontophoresis,Paraffin Bath,Ultrasound Other Therapeutic Interventions Iontophoresis with 3mg/mL Dexamethasone with sodium phosphate. Next Visit Focus/Plan Next Note Type Treatment Note Next Visit Plan Recheck following flare up, with review and discharge to self care HEP. Review HEP issued (wrist strengthening with Lev 1 TB: flex/ext & UD/ RD & finger glides). Review R shoulder/neck stabilization. HEP of opposition/pinching/ intrinsic strengthening. Educate & Issue home program for modality use for pain management (ice/contrast baths ). Educate pt in self STM of thumb AB's and if tender, wrist muscles involved with tightness. End with modalities as needed for pain management.
--- NOTE | 2021-01-05 17:34 | PT.OPPOC ---
Physical, Occupational & Speech Therapy At [facility] Current Diagnoses Pain in right shoulder (01/05/21) Pain in right wrist (01/05/21) Pain in left wrist (01/05/21) Stiffness of unspecified wrist, not elsewhere classified (01/05/21) Visit Care Team Role Provider Type Verena Keys DO Primary Care Provider Physician Specialty: Family Practice Address: [address] [place] [address], [address], [place], [address] Email: [email or web address] Betsy Sosa PA-C Attending Provider Advanced Superintendent [employer] Family Provider Referring Provider Specialty: Internal Medicine Address: [address] [place] [address], [address], [place], [address] Email: [email or web address] Plan Of Care PT-OP-T Assessment and Plan Start: 11/06/20 19:17 Freq: Status: Active Protocol: Document 01/05/21 13:34 LRN (Rec: 01/05/21 14:23 LRN [id number]) Physical Therapy Assessment Rehab Potential Rehabilitation Potential Fair Evaluation Complexity Number of Personal Factors/Comorbidities 3 or More Number of Body Systems Impaired 4 or More Clinical Presentation at Evaluation Evolving Impairments Impairments Activity Tolerance,Pain,ROM, Soft Tissue Mobility Goals Four Impairment R shoulder pain Short Term Goal (STG) Pt will be educated in a self care HEP of shoulder exercises to manage his pain. STG Duration 12/12/20 (12/02/20: MET GOAL) Licensed Psychologist Manager Goal (LTG) Decrease R shoulder pain to intermittent in nature and pain no greater than 2/10. LTG Duration 01/09/21 (01/05/21: MET GOAL on 12/02, pt currently in flare -up) Three Impairment L radial sided wrist pain Short Term Goal (STG) Pt will be educated in proper wrist care to minimize pain and improve pain free mobility . (12/22/20: L wrist is 0/10 pain ) (01/05/21: L wrist is 4/10 pain) STG Duration 11/28/20 (12/05/20: NOT MET GOAL, pt in flare-up) Licensed Psychologist Manager Goal (LTG) Decrease L wrist pain to 0/10 with intermittent flare ups with prolonged use. (12/22/20: Improved, pt hasn't wakened in morning with a stiff and unable to close hand , pain today 0/10) (01/05/21: Pain is 4/10) LTG Duration 01/09/21 (01/05/21: NOT MET GOAL, pt in flare-up) Two Impairment R wrist pain with use (pain rated 4/10). Short Term Goal (STG) Pt will be educated in a self care wrist flexibility HEP. STG Duration 12/05/20 (12/02/20: MET GOAL) Licensed Psychologist Manager Goal (LTG) Decrease R wrist pain to 0/10 with intermittent flare ups with prolonged use. (01/01/21: Mostly pain is 0/10 , increases with use at work; therefore requiring use of soft wrist brace) LTG Duration 02/04/21 (12/02/20: Progressing) One Impairment Lacks self care HEP Correction Goal (LTG) Pt will be independent with a self care exercise program of wrist, thumb/finger stretches. HEP TO DATE: STRETCHES: * Sidebend (UT), *Rot, *Stretch to radial side of wrist ( Finelstein position), *Stretch to wrist flexors. STRENGTHENING: *Scapular pinches, *Shoulder rolls, * Wrist strengthening: flex, ext , UD, RD w/TB, *finger tendon glides. POSTURE: *Postural repositioning against wall. LTG Duration 02/04/21 (01/01/21: Progressing) Progress Towards Goals Progress Comments Pt is in flare-up and appears worse today. UE QuickDASH is 15.9 ( initially was 13.63). Pain complaints: R wrist improved at 2/10 (initially was 4/10), R shoulder and L wrist are same as initially (7 /10 & 4/10 respectively) but has been 0/10. Assessment Summary Assessment Pt is a 20 yo male who has been seen for 5 treatments since 11/10/20. He has shown good progress, but attends today with complaints of reoccurance of his R shoulder & L wrist pain due to moving from one residence to another. The pt is in a flare-up due to the move; therefore he appears worse in function and pain complaints. The pt will benefit from continued therapy for recovery from his move and placement on his independent self care HEP. The pt's insurance allows for one more visit; therefore the pt is choosing to be seen for one more visit, then discharged from therapy. Physical Therapy Plan Frequency and Duration Frequency of Treatment 1x/Week Plan of Care Start Date 01/05/21 Plan of Care End Date 02/19/21 Therapeutic Interventions Therapeutic Interventions Home Exercise Program,Joint Mobilizations,Manual Therapy, Patient/Caregiver Education, Self-Care/Home Management,Soft Tissue Mobilization,Taping, Therapeutic Exercises Modalities Cold Pack/Ice Massage,Hot Packs,Iontophoresis,Paraffin Bath,Ultrasound Other Therapeutic Interventions Iontophoresis with 3mg/mL Dexamethasone with sodium phosphate. Next Visit Focus/Plan Next Note Type Treatment Note Next Visit Plan Recheck following flare up, with review and discharge to self care HEP. Review HEP issued (wrist strengthening with Lev 1 TB: flex/ext & UD/ RD & finger glides). Review R shoulder/neck stabilization. HEP of opposition/pinching/ intrinsic strengthening. Educate & Issue home program for modality use for pain management (ice/contrast baths ). Educate pt in self STM of thumb AB's and if tender, wrist muscles involved with tightness. End with modalities as needed for pain management. Plan of Care Dates Plan of Care Start Date 01/05/21 Plan of Care End Date 02/19/21 Electronically Signed by: Jacqueline Gonzalez, PT 01/05/21 [id number] Please Sign and Return: I have reviewed this Plan of Care and certify that the skilled therapy services above are required to meet the patient?s needs. Physician Signature Date Printed Name and Credentials Clinical Instructor Signature Printed Name and Credentials
--- NOTE | 2021-01-28 14:35 | PT.OTN ---
Current Diagnoses Pain in right shoulder (01/28/21) Pain in right wrist (01/28/21) Pain in left wrist (01/28/21) Stiffness of unspecified wrist, not elsewhere classified (01/28/21) Physical Therapy Treatment Note PT-OP-A Visit Information Start: 11/06/20 19:17 Freq: Status: Active Protocol: Document 01/28/21 12:49 LRN (Rec: 01/28/21 14:34 LRN [id number]) Out-Patient Physical Therapy Visit Information Visit Information Visit Type Treatment Note Visit Start Time 12:49 Visit Stop Time 13:38 Total Visit Minutes 49 Visit Number 7 Evaluation Information Evaluation Date 11/10/20 PT-OP-B Current Condition Start: 11/06/20 19:17 Freq: Status: Active Protocol: Document 11/10/20 08:22 LRN (Rec: 11/10/20 09:14 LRN [id number]) Current Condition History of Current Condition Onset Date 9 months ago. 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 Stopped using medications when he quit working at [employer]. Working [employer] 03/2018-present with return of symptoms 9 months ago, more severe in the past 3 months. Noticed most with online dalia. Having increased cramping and strain in the ulnar side of the L wrist. R hand stiffness with pain on closing hand. Was given 2 hand braces that decreased symptoms, but now having worsening of symptoms again. R hand strain is in anterior/volar wrist (volar> medial). R shoulder hurting due to dalia. He rests his forearm on the table that is high and he has to lift his arm to move his mouse. 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 R shoulder pain is constant. Pt is R handed. Planning on going back to school in January for digital animation. Pt noted popping his index fingers that is accompanied by pain rated 1/10 . Prior Treatments and Tests Given hand braces at walk-in- clinic. Treatment Goals Patient/Caregiver Goals Pt goal is get ex for R shoulder, and decrease wrist pain with discharge to [facility]. 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 Current Functional Impairments (Reported) Functional Limitations- ADL's Limited in dalia and typing. Functional Limitations- Work/School Works in the presence of pain. Functional Limitations- Recreation/ Limited in amount of dalia he Hobbies is able to do. Personal Factors Other Personal Factors That May Effect Moving out of house tomorrow. Therapy/Recovery Currently renting at home. 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 Hx of neck pain, head aches/ hearing problems, dizziness from anemia (transferring from crouch to standing), depression controlled by medication, borderline personality disorder on mood stabilizers. PT-OP-C Subjective Start: 11/06/20 19:17 Freq: Status: Active Protocol: Document 01/28/21 12:49 LRN (Rec: 01/28/21 14:34 LRN [id number]) OP-PT Subjective Patient Comments Patient Comments Shoulder has been feeling better adn a heated blanket as helped. Now has wnd gerardo helping him. At slow times does reps at work. [facility] and all heavy lifting is done. Still feels stiff in wrist and pain persists. R hand hurts more than L hand. Better overall. Shoulder rolls bothered him lately due to pain in R shoulder joint, but now can do . Trying to lift a heavy floor mat 5 days ago and had to drop the mat due to pain. OP-PT Pain Assessment Location R shoulder Pain Location Details R upper shoulder Intensity 5 Scale Used Numeric (0 - 10) Description Aching Frequency Constant R wrist anterior/medial Pain Location Details R wrist on anterior and medial side. Intensity 4 Scale Used Numeric (0 - 10) Description Aching L wrist Pain Location Details L ulnar side of wrist Intensity 4 Scale Used Numeric (0 - 10) Description- Other Bending wrist Frequency Intermittent Comments Pain Comments Doesn't use the hand brace on L hand. PT-OP-H Neuro Start: 11/06/20 19:17 Freq: Status: Active Protocol: Document 11/10/20 08:22 LRN (Rec: 11/10/20 09:14 LRN [id number]) Sensation Evaluation Gross Sensation Gross Sensation WNL PT-OP-J Posture/Palpation/Skin Start: 11/06/20 19:17 Freq: Status: Active Protocol: Document 11/10/20 08:22 LRN (Rec: 11/10/20 09:14 LRN [id number]) Posture Evaluation Position Sitting Head/C-Spine Posture Rotated Right Shoulder Posture (L) Forward,(R) Forward,(L) Elevated Standing Head/C-Spine Posture Side Bent Right T-Spine Posture Flattened L-Spine Posture Neutral Palpation Assessment Location R shoulder Palpation Location Supraspinatus Palpation Findings Tenderness Palpation Details Not tender at attachment sites . R wrist Palpation Location Radial side of wrist Palpation Findings Tenderness Palpation Details Tender at AB Pollicus Longus and Extensor Pollicus Brevis tendon. L wrist Palpation Location Radial side of wrist Palpation Findings Tenderness Palpation Details Tender at AB Pollicus Longus and Extensor Pollicus Brevis tendon. PT-OP-K Range of Motion Start: 11/06/20 19:17 Freq: Status: Active Protocol: Document 12/02/20 09:48 LRN (Rec: 12/02/20 10:35 LRN [id number]) Wrist Goniometric Range of Motion Wrist Right Ulnar Deviation Active (degrees) 22 Radial Deviation Active (degrees) 16 Left Ulnar Deviation Active (degrees) 22 Radial Deviation Active (degrees) 24 PT-OP-L Special Tests Start: 11/06/20 19:17 Freq: Status: Active Protocol: Document 11/10/20 08:22 LRN (Rec: 11/10/20 09:14 LRN [id number]) Special Tests Wrist/Hand Special Tests Jo's Test Results + left PT-OP-M Strength Start: 11/06/20 19:17 Freq: Status: Active Protocol: Document 11/10/20 08:22 LRN (Rec: 11/10/20 09:14 LRN [id number]) Wrist Strength Wrist Manual Muscle Testing Right Comments Generally 5/5 with pain on testing UD, pain is radial side. Left Comments Generally 5/5 with pain on testing Ext (pain at wrist), Flex (pain at thumb ext tendon (one more lateral), RD pain is radial side, UD pain is radial side. Finger/Thumb Strength Finger Manual Muscle Testing Left Thumb Adduction 4+ Good+ Abduction (fingers T1) 4+ Good+ Comments Pain in medial thumb ext tendon. All else 5/5 no significant. PT-OP-Q Treatments Start: 11/06/20 19:17 Freq: Status: Active Protocol: Document 01/28/21 12:49 LRN (Rec: 01/28/21 14:34 LRN [id number]) Therapeutic Exercises Sitting Exercises Trapezius stretch Sitting Exercise Name Hand behind back & sitting on hand for neck SB stretch Side right Reps/Minutes 3' Wrist ext strengthening Sitting Exercise Name Active wrist ext Side bilateral Reps/Minutes 15x Wrist flex strengthening Sitting Exercise Name Active wrist flex Side bilateral Reps/Minutes 15x R UT Stretch Sitting Exercise Name R UT Side right Reps/Minutes 3' Shoulder rolls Sitting Exercise Name Shoulder rolls Side bilateral Reps/Minutes 4' Manual Therapy Treatment Soft Tissue Mobilization R forearm Body Location R forearm Mobilization Type Strumming Intensity/Depth Moderate Body Position Supine R UT Body Location R UT Mobilization Type Strumming,Trigger Point Release Intensity/Depth Moderate Body Position Sidelying Manual Traction Cervical Details C. traction Body Position Supine Reps/Duration 1' Comments No change with shoulder/neck pain. Manual Techniques S/CS R UT Type S/CS in sidelie and supine Body Location R UT Body Position Sidelying Reps/Duration 24' Self-Care/Home Management Treatment Education Patient Education Home Exercise Program Activities Self-Care/Home Management Activities Handout issued & briefly discussed: Exercise & pain response. Issued & reviewed HEP: R UT stretch, Trapezius stretch, and Scalleni diagonal stretch PT-OP-R Modalities Start: 11/06/20 19:17 Freq: Status: Active Protocol: Document 01/05/21 13:34 LRN (Rec: 01/05/21 14:23 LRN [id number]) Hot Pack/Cold Pack Treatment Cold Pack Location Jovani wrist Patient Position Sitting Treatment Duration (minutes) 10 Comments Cold pack used during STM of R wrist extensors, & US of L wrist flexors. Ultrasound Therapy Treatment L UCL Treatment Duration (minutes) 4 Patient Position Sitting Coupling Medium Ultrasound Gel Applicator Size (cm2) 2 Frequency Setting (mHz) 3 Mode Setting Pulsed Duty Cycle 50% Intensity Setting (w/cm2) 1.0 R thumb AB Treatment Duration (minutes) 4 Patient Position Sitting Applicator Size (cm2) 2 Mode Setting Pulsed Duty Cycle 50% Intensity Setting (w/cm2) 1.0 R UT Treatment Duration (minutes) 5 Patient Position Sitting Coupling Medium Ultrasound Gel Applicator Size (cm2) 2 Mode Setting Pulsed Duty Cycle 50% Intensity Setting (w/cm2) 1.0 PT-OP-T Assessment and Plan Start: 11/06/20 19:17 Freq: Status: Active Protocol: Document 01/28/21 12:49 LRN (Rec: 01/28/21 14:34 LRN [id number]) Physical Therapy Assessment Goals Four Impairment R shoulder pain Short Term Goal (STG) Pt will be educated in a self care HEP of shoulder exercises to manage his pain. STG Duration 12/12/20 (12/02/20: MET GOAL) Cavalry Scout Goal (LTG) Decrease R shoulder pain to intermittent in nature and pain no greater than 2/10. LTG Duration 01/09/21 (01/05/21: MET GOAL on 12/02, pt currently in flare -up) Three Impairment L radial sided wrist pain Short Term Goal (STG) Pt will be educated in proper wrist care to minimize pain and improve pain free mobility . (12/22/20: L wrist is 0/10 pain ) (01/05/21: L wrist is 4/10 pain) STG Duration 11/28/20 (12/05/20: NOT MET GOAL, pt in flare-up) Intermediate Goal (LTG) Decrease L wrist pain to 0/10 with intermittent flare ups with prolonged use. (12/22/20: Improved, pt hasn't wakened in morning with a stiff and unable to close hand , pain today 0/10) (01/05/21: Pain is 4/10) LTG Duration 01/09/21 (01/05/21: NOT MET GOAL, pt in flare-up) Two Impairment R wrist pain with use (pain rated 4/10). Short Term Goal (STG) Pt will be educated in a self care wrist flexibility HEP. STG Duration 12/05/20 (12/02/20: MET GOAL) Intermediate Goal (LTG) Decrease R wrist pain to 0/10 with intermittent flare ups with prolonged use. (01/01/21: Mostly pain is 0/10 , increases with use at work; therefore requiring use of soft wrist brace) LTG Duration 02/04/21 (12/02/20: Progressing) One Impairment Lacks self care HEP Cavalry Scout Goal (LTG) Pt will be independent with a self care exercise program of wrist, thumb/finger stretches. HEP TO DATE: STRETCHES: *R Trapezius stretch (arm straight and arm held behind back), *Scalleni stretch, * Sidebend (UT), *Rot, *Stretch to radial side of wrist ( Finelstein position), *Stretch to wrist flexors. STRENGTHENING: *Scapular pinches, *Shoulder rolls, * Wrist strengthening: flex, ext , UD, RD w/TB, *finger tendon glides. POSTURE: *Postural repositioning against wall. EDUCATION: Exercise & pain response. LTG Duration 02/04/21 (01/28/21: Progressing) Progress Towards Goals Progress Comments Pt has been moving and finished his heavy lifting 5 days ago; therefore no progress has been made although the pt notes he feels better in the morning with use of a heating blanket at night to his neck/shoulder. Assessment Summary Assessment Pt returns in flared up state from finishing his move, with last time moving heavy object 5 days ago. He presents with R UT sprain/strain & Jovani wrist pain that is rated the same pain as initial visit. He has a [address] later today; therefore progress is expected to be very slow. The pt will return for one more visit to finalize her HEP and advance if appropriate. Today he was not ready to be advanced in a strengthening program due to increase in pain in R neck/shoulder and bilateral wrists. Physical Therapy Plan Frequency and Duration Frequency of Treatment One more visit Plan of Care Start Date 01/05/21 Plan of Care End Date 02/19/21 Next Visit Focus/Plan Next Note Type Treatment Note Next Visit Plan DC next visit due to insurance limit reached. Assess painfree wrist AROM & pain rating R shoulder, wrists. Review and discharge to self care HEP. Review HEP issued (wrist strengthening with Lev 1 TB: flex/ext & UD/RD & finger glides). Review R shoulder/neck stabilization. HEP of opposition/pinching/ intrinsic strengthening. Educate & Issue home program for modality use for pain management (ice/contrast baths ). Educate pt in self STM of thumb AB's and if tender, wrist muscles involved with tightness. Cryotherapy if needed for pain management.
--- NOTE | 2021-03-03 17:11 | PT-OP ANOTE ---
Per phone conversation, the pt will call back to schedule his last remaining appointment for HEP review and discharge from therapy.
--- NOTE | 2021-04-17 15:58 | PT.OTN ---
Current Diagnoses Pain in right shoulder (04/17/21) Pain in right wrist (04/17/21) Pain in left wrist (04/17/21) Stiffness of unspecified wrist, not elsewhere classified (04/17/21) Physical Therapy Treatment Note PT-OP-A Visit Information Start: 11/06/20 19:17 Freq: Status: Active Protocol: Document 04/17/21 15:05 LRN (Rec: 04/17/21 15:57 LRN [id number]) Out-Patient Physical Therapy Visit Information Visit Information Visit Type Treatment Note Visit Start Time 15:05 Visit Stop Time 15:31 Total Visit Minutes 34 Visit Number 8 Evaluation Information Evaluation Date 11/10/20 PT-OP-B Current Condition Start: 11/06/20 19:17 Freq: Status: Active Protocol: Document 11/10/20 08:22 LRN (Rec: 11/10/20 09:14 LRN [id number]) Current Condition History of Current Condition Onset Date 9 months ago. 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 Stopped using medications when he quit working at [employer]. Working [employer] 03/2018-present with return of symptoms 9 months ago, more severe in the past 3 months. Noticed most with online dalia. Having increased cramping and strain in the ulnar side of the L wrist. R hand stiffness with pain on closing hand. Was given 2 hand braces that decreased symptoms, but now having worsening of symptoms again. R hand strain is in anterior/volar wrist (volar> medial). R shoulder hurting due to dalia. He rests his forearm on the table that is high and he has to lift his arm to move his mouse. 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 R shoulder pain is constant. Pt is R handed. Planning on going back to school in January for digital animation. Pt noted popping his index fingers that is accompanied by pain rated 1/10 . Prior Treatments and Tests Given hand braces at walk-in- clinic. Treatment Goals Patient/Caregiver Goals Pt goal is get ex for R shoulder, and decrease wrist pain with discharge to [facility]. 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 Current Functional Impairments (Reported) Functional Limitations- ADL's Limited in dalia and typing. Functional Limitations- Work/School Works in the presence of pain. Functional Limitations- Recreation/ Limited in amount of dalia he Hobbies is able to do. Personal Factors Other Personal Factors That May Effect Moving out of house tomorrow. Therapy/Recovery Currently renting at home. 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 Hx of neck pain, head aches/ hearing problems, dizziness from anemia (transferring from crouch to standing), depression controlled by medication, borderline personality disorder on mood stabilizers. PT-OP-C Subjective Start: 11/06/20 19:17 Freq: Status: Active Protocol: Document 04/17/21 15:05 LRN (Rec: 04/17/21 15:57 LRN [id number]) OP-PT Subjective Patient Comments Patient Comments Hand is doing a lot better. Chiropractor has been adjusting the wrist and hand. Hasn't noticed pain as much, ex's helps. Shoulder has been getting better. Chiro gave sheet of ex's that are the same as PT handouts. R wrist pain hasn't noticeably hurting so pain rated 1/10 with overuse and at work. At rest no pain. L wrist pain is 0/10 PT-OP-H Neuro Start: 11/06/20 19:17 Freq: Status: Active Protocol: Document 11/10/20 08:22 LRN (Rec: 11/10/20 09:14 LRN [id number]) Sensation Evaluation Gross Sensation Gross Sensation WNL PT-OP-J Posture/Palpation/Skin Start: 11/06/20 19:17 Freq: Status: Active Protocol: Document 11/10/20 08:22 LRN (Rec: 11/10/20 09:14 LRN [id number]) Posture Evaluation Position Sitting Head/C-Spine Posture Rotated Right Shoulder Posture (L) Forward,(R) Forward,(L) Elevated Standing Head/C-Spine Posture Side Bent Right T-Spine Posture Flattened L-Spine Posture Neutral Palpation Assessment Location R shoulder Palpation Location Supraspinatus Palpation Findings Tenderness Palpation Details Not tender at attachment sites . R wrist Palpation Location Radial side of wrist Palpation Findings Tenderness Palpation Details Tender at AB Pollicus Longus and Extensor Pollicus Brevis tendon. L wrist Palpation Location Radial side of wrist Palpation Findings Tenderness Palpation Details Tender at AB Pollicus Longus and Extensor Pollicus Brevis tendon. PT-OP-K Range of Motion Start: 11/06/20 19:17 Freq: Status: Active Protocol: Document 12/02/20 09:48 LRN (Rec: 12/02/20 10:35 LRN [id number]) Wrist Goniometric Range of Motion Wrist Right Ulnar Deviation Active (degrees) 22 Radial Deviation Active (degrees) 16 Left Ulnar Deviation Active (degrees) 22 Radial Deviation Active (degrees) 24 PT-OP-L Special Tests Start: 11/06/20 19:17 Freq: Status: Active Protocol: Document 11/10/20 08:22 LRN (Rec: 11/10/20 09:14 LRN [id number]) Special Tests Wrist/Hand Special Tests Jo's Test Results + left PT-OP-M Strength Start: 11/06/20 19:17 Freq: Status: Active Protocol: Document 11/10/20 08:22 LRN (Rec: 11/10/20 09:14 LRN [id number]) Wrist Strength Wrist Manual Muscle Testing Right Comments Generally 5/5 with pain on testing UD, pain is radial side. Left Comments Generally 5/5 with pain on testing Ext (pain at wrist), Flex (pain at thumb ext tendon (one more lateral), RD pain is radial side, UD pain is radial side. Finger/Thumb Strength Finger Manual Muscle Testing Left Thumb Adduction 4+ Good+ Abduction (fingers T1) 4+ Good+ Comments Pain in medial thumb ext tendon. All else 5/5 no significant. PT-OP-Q Treatments Start: 11/06/20 19:17 Freq: Status: Active Protocol: Document 04/17/21 15:05 LRN (Rec: 04/17/21 15:57 LRN [id number]) Therapeutic Exercises Sitting Exercises Elbow Ext Sitting Exercise Name Elbow Ext strengthening Equipment Used Lev 1 TB Reps/Minutes 2' Elbow Curl Sitting Exercise Name Elbow Curl strengthening Side bilateral Equipment Used Lev 1 TB Reps/Minutes 2' Pron Sitting Exercise Name Micheal Side bilateral Reps/Minutes 1' Comments MMT taken Sup strengthening Sitting Exercise Name Sup strengthening Side bilateral Equipment Used Lev 1 TB Reps/Minutes 3' Comments MMT taken UD/RD strengthening Sitting Exercise Name ARROM Side bilateral Equipment Used Lev 1 TB Reps/Minutes 5' Comments MMT taken Wrist ext strengthening Sitting Exercise Name ARROM Side bilateral Equipment Used Lev 1TB Reps/Minutes 3' Comments MMT taken Wrist flex strengthening Sitting Exercise Name Active wrist flex strengthening Side bilateral Equipment Used Lev 1 TB Reps/Minutes 3' Comments MMT taken Wrist flexors stretch Sitting Exercise Name Wrist flexor stretch Side right Reps/Minutes 2' Self-Care/Home Management Treatment Education Patient Education Home Exercise Program Other Education Educated pt in contrast bath with handout issued. Activities Self-Care/Home Management Activities Issued & reviewed HEP: TB ex' s: Elbow curls/ext, Wrist Flex/Ext/UD, Forearm Supination. Shoulder Ex's: Rolls, c. rot, Shldr/thoracic ext - sun salute (roll), Trunk SB, doorway pec stretch. Issued Lev 1 TBand. PT-OP-R Modalities Start: 11/06/20 19:17 Freq: Status: Active Protocol: Document 01/05/21 13:34 LRN (Rec: 01/05/21 14:23 LRN [id number]) Hot Pack/Cold Pack Treatment Cold Pack Location Jovani wrist Patient Position Sitting Treatment Duration (minutes) 10 Comments Cold pack used during STM of R wrist extensors, & US of L wrist flexors. Ultrasound Therapy Treatment L UCL Treatment Duration (minutes) 4 Patient Position Sitting Coupling Medium Ultrasound Gel Applicator Size (cm2) 2 Frequency Setting (mHz) 3 Mode Setting Pulsed Duty Cycle 50% Intensity Setting (w/cm2) 1.0 R thumb AB Treatment Duration (minutes) 4 Patient Position Sitting Applicator Size (cm2) 2 Mode Setting Pulsed Duty Cycle 50% Intensity Setting (w/cm2) 1.0 R UT Treatment Duration (minutes) 5 Patient Position Sitting Coupling Medium Ultrasound Gel Applicator Size (cm2) 2 Mode Setting Pulsed Duty Cycle 50% Intensity Setting (w/cm2) 1.0 PT-OP-T Assessment and Plan Start: 11/06/20 19:17 Freq: Status: Active Protocol: Document 04/17/21 15:05 LRN (Rec: 04/17/21 15:57 LRN [id number]) Physical Therapy Assessment Goals Four Impairment R shoulder pain Short Term Goal (STG) Pt will be educated in a self care HEP of shoulder exercises to manage his pain. STG Duration 12/12/20 (12/02/20: MET GOAL) Hris Developer Goal (LTG) Decrease R shoulder pain to intermittent in nature and pain no greater than 2/10. LTG Duration 01/09/21 (01/05/21: MET GOAL on 12/02/20) Three Impairment L radial sided wrist pain Short Term Goal (STG) Pt will be educated in proper wrist care to minimize pain and improve pain free mobility . (12/22/20: L wrist is 0/10 pain ) (01/05/21: L wrist is 4/10 pain) (04/17/21: Pt able to show ex's he should do. Hasn't needed to wear wrist brace because he doesn't need it. Issued wrist strengthening ex's). STG Duration 11/28/20 (04/17/21: MET GOAL) Half-Way Goal (LTG) Decrease L wrist pain to 0/10 with intermittent flare ups with prolonged use. (12/22/20: Improved, pt hasn't wakened in morning with a stiff and unable to close hand , pain today 0/10) (01/05/21: Pain is 4/10) LTG Duration 01/09/21 (04/17/21: MET GOAL,) Two Impairment R wrist pain with use (pain rated 4/10). Short Term Goal (STG) Pt will be educated in a self care wrist flexibility HEP. STG Duration 12/05/20 (12/02/20: MET GOAL) Hris Developer Goal (LTG) Decrease R wrist pain to 0/10 with intermittent flare ups with prolonged use. (01/01/21: Mostly pain is 0/10 , increases with use at work; therefore requiring use of soft wrist brace) LTG Duration 02/04/21 (04/17/21: MET GOAL) One Impairment Lacks self care HEP Half-Way Goal (LTG) Pt will be independent with a self care exercise program of wrist, thumb/finger stretches. HEP TO DATE: STRETCHES: *R Trapezius stretch (arm straight and arm held behind back), *Scaleni stretch, * Sidebend (UT), *Rot, *Stretch to radial side of wrist ( Finelstein position), *Stretch to wrist flexors. *Neck stretch (rot), *T/S - SB and Ext w/shldr retract. *Shldr - pec stretch STRENGTHENING: *Scapular pinches, *Shoulder rolls, * Wrist strengthening: flex, ext , UD, RD w/TB, *finger tendon glides. POSTURE: *Postural repositioning against wall. EDUCATION: Exercise & pain response, contrast bath. LTG Duration 02/04/21 (04/17/21: MET GOAL) Assessment Summary Assessment Pt returns after ~2.5 months break. He has been doing home ex's and has been seeing a chiropractor for hand mobs and exercises. The pt has improved and met his pain and exercise goals. He has been issued today the final ex's for his comprehensive HEP. Physical Therapy Plan Discharge Physical Therapy Discharge Reasons Goals Met Discharge Comments Thank you for your referral.
== END 2021-04-20 08:22 | disposition home or self-care (01) ==
LOC: PHYS 15:00
PROVIDERS: Family Provider Physician Assistant; PCP Family Medicine; Referring Provider Physician Assistant; Visit Provider Physician Assistant
DX: M25.531 Pain in right wrist (principal); M25.532 Pain in left wrist; M25.511 Pain in right shoulder; M25.639 Stiffness of unspecified wrist, not elsewhere classified
CPT/HCPCS: 97035; 97110; 97140; 97162; 97535